=== PATIENT | female | born 2000 | race Caucasian/White ===

== ENCOUNTER → 2019-07-25 14:09 | Outpatient (CLI) | payer OTHER, SELFPAY ==
[2019-07-25 15:09] LABS: Ferritin 9 ng/mL (8-252); Free T3 2.6 pg/mL (2.18-3.98); T4 Free Direct 1.03 ng/dL (0.76-1.46); Thyroid Stim Hormone (TSH) 1.59 uIU/mL (0.358-3.74)
== END ==
PROVIDERS: Visit Provider Obstetrics & Gynecology
DX: L65.9 Nonscarring hair loss, unspecified (principal); Z12.4 Encounter for screening for malignant neoplasm of cervix; Z11.3 Encounter for screening for infections with a predominantly sexual mode of transmission
CPT/HCPCS: 82728; 84439; 84443; 84481

== ENCOUNTER → 2019-11-13 14:45 | Outpatient (CLI) | payer OTHER, SELFPAY | DX: R40.4 Transient alteration of awareness (principal) | CPT/HCPCS: 95819 ==

== ENCOUNTER 2021-09-11 13:23 | Outpatient (CLI) | payer OTHER, SELFPAY ==
[2021-09-14 04:07] LABS: Chlamydia By Nucleic Acid AMP Negative (Negative)
[2021-09-14 11:25] LABS: Gonococcus By Nucleic Acid AMP Negative (Negative)
[2021-09-16 17:18] LABS: HPV Reflexed? NOT INDICATED
== END 2021-09-11 23:59 | disposition short-term general hospital (02) ==
LOC: LABSPEC 13:30
PROVIDERS: PCP Internal Medicine; Visit Provider Obstetrics & Gynecology
DX: Z12.4 Encounter for screening for malignant neoplasm of cervix (principal); Z11.3 Encounter for screening for infections with a predominantly sexual mode of transmission
CPT/HCPCS: 87491; 87591; 88175; G0145

== ENCOUNTER 2022-05-11 17:00 | Outpatient (RCR) | payer OTHER, SELFPAY ==
--- NOTE | 2022-04-13 17:41 | HP.PTEVAL_ITS ---
Patient's Visit Information MONICA GARCIA is a 22 year old F referred to Physical Therapy by MYKE ALLEN with a diagnosis of muscle spasms. Date of Evaluation: 04/13/22 Physical Therapist: Kodak Moseley, DPT, OCS, CSCS - Visit Plan Frequency: 2-3x /Week Duration: 4-6 Weeks Plan: 2-3x/week for 3-4 weeks to start for. 1. MH and STM to B UT , lev scap and neck muscles, neck extension mobs and thoracic. 2. stretch pecs, lev scap and UT. 3. strengthen neck and scap and core and progress to HEP - Subjective Having more frequent migraines and tight in shoulder and neck. Sees Dr. Allen for migraines long haul and stress has made them worse last couple months. 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 No neck pain or arm symptoms. Does coloring at home to destress and looking down can cause MORENO. Feels tightness in neck into posterior shoulders. Does all her work with R arm. sleep s not interrupted. MORENO are 2-3 week before new meds, now maybe one time per week which is her baseline. Put on propanolol. Stress may be the lead but they come on when she is busy. They get up to 4/10 lately, they are just there. Works through it. No regular ex or neck stretches. - Pain MORENO Pain Intensity (Out of 10): 0 Pain Intensity Range: 0, 4 - Objective Walks normal and I, transfers I. Posture is max Fw head and limited mobility apparent in ext of lower cervical spine. UE AROM WFL adn without pain. reflexes bi and tri 2/3, sensation UE WNL to gross light touch. Strength UE and scap 4-/ 5 without pain. No myotomal abnormalities in UE. cervical aROM ext 60 and avoids end range due to central pain. SB full but contralateral tightness felt. rotation 80 B with just some slight pulling contralaterally. UT and lev scap mod tight B. - c/s compression. good balance and gait. - Balance/Special Test Scores Oswestry Neck Score: 5 - Goals Goal 1:: MORENO every two weeks at most Goal Time Frame: 4-6 Weeks Goal 2:: Full neck ROM ext without pain or hesitation Goal Time Frame: 4-6 Weeks Goal 3:: 2 or less on neck oswestry Goal Time Frame: 4-6 Weeks Goal 4:: Pt feel 90% better in MORENO and neck tightness./stiffness. Goal Time Frame: 4-6 Weeks - Rehabilitation Potential Physical Therapy Diagnosis: tightness in neck and postural abnormalities possibly effecting pain Rehabilitation Potential: Good - Anticipated Interventions Patient/Client Instruction: Educate patient on: Condition, Plan of Care For the Purpose of:: To decrease pain, To increase ROM, To improve muscle performance and motor function, To increase tolerance to activity/condition/position, To improve ability of physical actions for home/community/work/leisure Therapeutic Exercise to Include: Strength training, Postural training, Flexibilty training, Passive ROM, Active ROM, Jose E Exercises For the Purpose of:: To decrease pain, To increase ROM, To improve muscle performance and motor function, To increase tolerance to activity/condition/position, To improve ability of physical actions for home/community/work/leisure Manual Therapy Techniques to Include: Mobilization, Soft tissue mobilization For the Purpose of:: To decrease pain, To increase ROM Thermo therapy (hot pack): Yes For the Purpose of:: To decrease pain, To increase ROM Thank you for the opportunity to evaluate your patient. For Medicare and Medicare HMO plans, please review the plan of care and approve it. It will need to be FAXED BACK to us at [phone] for Medicare purposes. For Medicare only, by signing this I certify the plan of care. Please let me know if there are questions or concerns regarding this plan of care. Physician Signature: Date:
--- NOTE | 2022-05-11 17:23 | HP.PTREVAL ---
MYKE ALLEN, It has been my pleasure to treat MONICA GARCIA over the last 9 visits for muscle spasms. Please see the progress note below for an update on the physical therapy plan of care! Subjective: Slowly but surely getting better. Has some mid back pain from rage cleaning. Neck is tight but not as bad as originally. 60% better. Did not have MORENO last week and getting back to baseline. Doing HEP everyday stretching strengthening. They feel easy and has blue band 2x15. Sleeping is good. Activities are normal. To doctor Pollo in mid may. Objective/Function: 85 degree B cervical rotation. 80 degree extensio is +30 from IE. posture is much improved with chin back over chest. Patient feeling much better. Plan Plan: f/u 3 weeks to ensure progress maintained and then d/c, pt may cancel if doing real well. OR call to get in sooner if goes backwards. Balance/Gait/Functional tests - Balance/Special Test Scores Oswestry Neck Score: 1 Goals Goal 1:: MORENO every two weeks at most Goal Time Frame: 4-6 Weeks Goal Progress: Goal Met Goal 2:: Full neck ROM ext without pain or hesitation Goal Time Frame: 4-6 Weeks Goal Progress: Goal Met Goal 3:: 2 or less on neck oswestry Goal Time Frame: 4-6 Weeks Goal Progress: Goal Met Goal 4:: Pt feel 90% better in MORENO and neck tightness./stiffness. Goal Time Frame: 4-6 Weeks Goal Progress: 60% Anticipated Interventions Patient/Client Instruction: Educate patient on: Condition, Plan of Care For the Purpose of:: To decrease pain, To increase ROM, To improve muscle performance and motor function, To increase tolerance to activity/condition/position, To improve ability of physical actions for home/community/work/leisure Therapeutic Exercise to Include: Strength training, Postural training, Flexibilty training, Passive ROM, Active ROM, Jose E Exercises For the Purpose of:: To decrease pain, To increase ROM, To improve muscle performance and motor function, To increase tolerance to activity/condition/position, To improve ability of physical actions for home/community/work/leisure Manual Therapy Techniques to Include: Mobilization, Soft tissue mobilization For the Purpose of:: To decrease pain, To increase ROM Thermo therapy (hot pack): Yes For the Purpose of:: To decrease pain, To increase ROM Please do not hesitate to contact me at [phone] by phone or if you have questions or concerns regarding this new plan of care! Sincerely, Kodak Moseley, DPT, OCS, CSCS
--- NOTE | 2022-06-30 08:06 | HP.PTDCNRP_ITS ---
MONICA GARCIA was seen in my office for initial evaluation on 04/13/22. The following Plan of Care was established for this patient: Initial Frequency: 2-3x /Week Initial Duration: 4-6 Weeks Patient/Client Instruction: Educate patient on: Condition, Plan of Care For the Purpose of:: To decrease pain, To increase ROM, To improve muscle performance and motor function, To increase tolerance to activity/condition/position, To improve ability of physical actions for home/co mmunity/work/leisure Therapeutic Exercise to Include: Strength training, Postural training, Flexibilty training, Passive ROM, Active ROM, Jose E Exercises For the Purpose of:: To decrease pain, To increase ROM, To improve muscle performance and motor function, To increase tolerance to activity/condition/position, To improve ability of physical actions for home/community/work/leisure Manual Therapy Techniques to Include: Mobilization, Soft tissue mobilization For the Purpose of:: To decrease pain, To increase ROM Thermo therapy (hot pack): Yes For the Purpose of:: To decrease pain, To increase ROM This patient was last seen in our office 05/11/22. Pertinent comments regarding their Physical therapy will appear below: Pt seen 9 visits of POC and was 60% better. He was to f/u 3 weeks later but did not schedule or attend. at this point, it has been over 6 weeks and I will discontinue due to nonattendance. At this point I will be discontinuing this patient from physical therapy. I would be happy to see this patient again in the future if found appropriate by the physician. Thank you! Kodak Moseley, DPT, OCS, CSCS Balance/Gait/Functional tests - Balance/Special Test Scores Oswestry Neck Score: 1
== END 2022-05-11 19:00 | disposition home or self-care (01) ==
LOC: PT 17:00
PROVIDERS: PCP Internal Medicine
DX: M62.838 Other muscle spasm (principal)
CPT/HCPCS: 97110; 97140; 97161; 97530

== ENCOUNTER 2023-09-16 13:29 | Outpatient (CLI) | payer OTHER, SELFPAY ==
[2023-09-16 15:23] LABS: Free T3 2.4 pg/mL (2.18-3.98); T4 Free Direct 0.91 ng/dL (0.76-1.46); Thyroid Stim Hormone (TSH) 1.49 uIU/mL (0.358-3.74)
== END 2023-09-16 23:59 | disposition home or self-care (01) ==
LOC: LAB 13:32
PROVIDERS: PCP Internal Medicine; Referring Provider Registered Nurse; Visit Provider Registered Nurse
DX: F41.9 Anxiety disorder, unspecified (principal); Z83.49 Family history of other endocrine, nutritional and metabolic diseases
CPT/HCPCS: 36415; 84439; 84443; 84481

== ENCOUNTER → 2024-06-20 | Outpatient (CLI) | payer OTHER, SELFPAY | END | disposition home or self-care (01) | LOC: SL 19:53 | PROVIDERS: PCP Internal Medicine | DX: G47.33 Obstructive sleep apnea (adult) (pediatric) (principal) | CPT/HCPCS: 95810 ==

== ENCOUNTER → 2024-08-24 | Outpatient (CLI) | payer OTHER, SELFPAY | END | disposition home or self-care (01) | LOC: SL 13:31 | PROVIDERS: PCP Internal Medicine | DX: G47.33 Obstructive sleep apnea (adult) (pediatric) (principal) | CPT/HCPCS: 98960; G0463 ==

== ENCOUNTER → 2024-09-28 | Outpatient (CLI) | payer OTHER, SELFPAY ==
[2024-10-05 12:55] LABS: HPV Reflexed? NOT INDICATED
== END | disposition home or self-care (01) ==
LOC: LABSPEC 09:38
PROVIDERS: PCP Internal Medicine; Referring Provider Registered Nurse; Visit Provider Registered Nurse
DX: Z12.4 Encounter for screening for malignant neoplasm of cervix (principal)
CPT/HCPCS: 88175; G0145

== ENCOUNTER → 2025-01-30 | Outpatient (CLI) | payer OTHER, SELFPAY ==
--- NOTE | 2025-01-30 09:07 | RAD_ITS ---
PROCEDURE: L/S SPINE MIN 4 VIEWS 01/30/2025 REASON FOR EXAM: BACK PAIN TECHNIQUE: Four views of the lumbar spine. COMPARISON: None. FINDINGS: No evidence of acute fracture or dislocation. Vertebral body heights are maintained. Intervertebral disc spaces are maintained. No visualized pars defects. Dextroscoliotic curvature centered at L3. RAD/L/S Spine Min 4 Views IMPRESSION: Scoliotic curvature. Reading Location: [id number]
== END | disposition home or self-care (01) ==
LOC: MTRAD 09:07
PROVIDERS: PCP Internal Medicine; Referring Provider Chiropractor; Visit Provider Chiropractor
DX: M99.03 Segmental and somatic dysfunction of lumbar region (principal)
CPT/HCPCS: 72110

== ENCOUNTER → 2025-04-30 | Outpatient (CLI) | payer OTHER, SELFPAY | END | disposition home or self-care (01) | LOC: LABSPEC 16:51 | PROVIDERS: PCP Internal Medicine; Visit Provider Physician Assistant | DX: R30.0 Dysuria (principal) | CPT/HCPCS: 87077; 87086; 87088; 87186 ==

== ENCOUNTER → 2025-05-17 | Outpatient (CLI) | payer OTHER, SELFPAY ==
[2025-05-17 16:39] LABS: Mucous, Urine 0 SEEN /hpf (<or=2+)
--- OUTSIDE RECORDS SUMMARY | 2025-05-17 16:54 | XMS RPT_ITS | CCD ---
Author Organization [facility] Care Team Providers Care Aircraft Structural Fitter Name Role Phone OLIVER DUKES Attending Unavailable JESSICA CERVANTES ([facility] [place] Attending Unavaila ble MICHAEL RODRIGUEZ Referring Unavailab MICHAEL Rosenbaum Referring Unavailab MYKE Chavez Referring Unavailable MICHAEL RODRIGUEZ Primary Care Unavailable MICHAEL RODRIGUEZ Primary Care Unavailable CIPRIANO JACKSON Attending Unavailable SEAMUS VELÁZQUEZ Attending Unavailable PROVIDER, UNKNOWN Admitting Unavailable PATIENT, SELF Referring Unavailable Michael Rodriguez Primary Care Provider Dr. Divina Lock Primary Care Provider [phone] Dr. Divina Lock Attending Provider [phone] Dr. Divina Lock Referring Provider [phone] Dr. Divina Lock Primary Care Provider [phone] Dr. Divina Lock Referring Provider [phone] PAVAN Guido Attending Provider Divina Lock MD Primary Care Provider [phone] Dr. Divina Lock MD Primary Care Provider Ashvin HENDERSON, Dr. Murcia Referring Provider [phone] Denise REINA, Dr. Quispe Attending Provider [phone] Denise REINA, Dr. Quispe Referring Provider [phone] MYKE ABAD Attending Unavailable MYKE ABAD Attending Unavailable MYKE ABAD Attending Unavailable Aaron Saez Attending Provider Aaron Saez Attending Unavailable Oleghe, Efewongbe Primary Care Unavailable Oleghe, Efewongbe Referring Unavailable Oleghe, Efewongbe Primary Care Unavailable DosBrittaney lynne Attending Unavailable Oleghe, Efewongbe Referring Unavailable Oleghe, Efewongbe Primary Care Unavailable DosBrittaney lynne Attending Unavailable Oleghe, Efewongbe Referring Unavailable Oleghe, Efewongbe Primary Care Unavailable DosBrittaney lynne Attending Unavailable Oleghe, Efewongbe Referring Unavailable Oleghe, Efewongbe Primary Care Unavailable Assessment, Health Risk Attending Unavaila ble Assessment, Health Risk Referring Unavaila ble Aaron Saez Attending Unavailable Oleghe, Efewongbe Primary Care Unavailable Oleghe, Efewongbe Primary Care Unavailable DosBrittaney lynne Attending Unavailable DosBrittaney lynne Referring Unavailable Oleghe, Efewongbe Primary Care Unavailable Anila Guido Attending Unavailable Anila Guido Referring Unavailable OLAMIDECRENATALIE GARIBAY Attending Unavailable RICHCREEK NATALIE Referring Unavailable Oleghe, Efewongbe Primary Care Unavailable OLAMIDECRENATALIE GARIBAY Attending Unavailable Oleghe, Efewongbe Primary Care Unavailable Oleghe, Efewongbe Primary Care Unavailable DosBrittaney lynne Attending Unavailable Oleghe, Efewongbe Referring Unavailable Oleghe, Efewongbe Primary Care Unavailable Anila Guido Attending Unavailable Oleghe, Efewongbe Referring Unavailable Oleghe, Efewongbe Primary Care Unavailable Oleghe, Efewongbe Attending Unavailable Oleghe, Efewongbe Referring Unavailable Oleghe, Efewongbe Primary Care Unavailable DosBrittaney lynne Attending Unavailable Oleghe, Efewongbe Referring Unavailable Allergies Allergy Classification Reported Allergen(s) Allergy Type Date of Onset Reaction(s) Facility (20 sources) Azithromycin; Translations: [AZITHROMYCIN] Drug Allergy 10-07-2009 Enrique Aguayo [facility] [place] Other [place] Repository Medications Current Medications Medication Drug Class(es) Dates Sig (Normalized) Sig (Original) Ascorbic Acid / Zinc Sulfate (6 sources) Vitamin C Start: 03-26-2020 Ascorbic Acid-Zinc Sulfate 200-100 mg tablet Active 1 {tbl} PO DAILY March 26, 2020 12:00am 1000 mg Norgestimate-Ethiny l Estradiol (20 sources) Progestin, Estrogen Start: 09-28-2024 Norgestimate-Ethin yl Estradiol (Sprintec (28)) 0.25-35 mg-mcg tablet Active 1 {tbl} PO DAILY 18 08September 28, 2024 9:32am Start: 09-28-2024 Norgestimate-E thinyl Estradiol (Sprintec (28)) 0.25-35 mg-mcg tablet Active 1 {tbl} PO DAILY September 28, 2024 9:32am Start: 08-27-2024 End: 09-28-2024 Norgestimate-Ethinyl Estradi ol (Sprintec (28)) 0.25-35 mg-mcg tablet Discontinued 1 {tbl} PO DAILY 19 10August 27, 2024 3:30pm September 28, 2024 9:34am Start: 08-27-2024 End: 09-28-2024 Norgestimate-Ethinyl Estradi ol (Sprintec (28)) 0.25-35 mg-mcg tablet Discontinued 1 {tbl} PO DAILY August 27, 2024 3:30pm September 28, 2024 9:34am Start: 08-31-2023 End: 08-27-2024 Norgestimate-Ethinyl Estradi ol (Sprintec (28)) 0.25-35 mg-mcg tablet Discontinued 1 {tbl} PO DAILY 18 08August 31, 2023 8:56am August 27, 2024 3:30pm Start: 08-31-2023 End: 08-27-2024 Norgestimate-Ethinyl Estradi ol (Sprintec (28)) 0.25-35 mg-mcg tablet Discontinued 1 {tbl} PO DAILY August 31, 2023 8:56am August 27, 2024 3:30pm Start: 08-31-2023 take 1 tablet by martha once daily Norgestimate-Ethinyl Estradiol (Sprintec (28)) 0.25-35 mg-mcg tablet Active 1 TABLET PO DAILY August 31, 2023 7:56am Start: 09-13-2022 End: 08-31-2023 Norgestimate-Ethinyl Estradi ol (Sprintec (28)) 0.25-35 mg-mcg tablet Discontinued 1 {tbl} PO DAILY 18 08September 13, 2022 9:50am August 31, 2023 8:56am Start: 09-13-2022 End: 08-31-2023 Norgestimate-Ethinyl Estradi ol (Sprintec (28)) 0.25-35 mg-mcg tablet Discontinued 1 {tbl} PO DAILY September 13, 2022 9:50am August 31, 2023 8:56am Start: 09-13-2022 End: 08-31-2023 take 1 tablet by mouth once daily Norgestimate-Ethinyl Estradiol (Sprintec (28)) 0.25-35 mg-mcg tablet Discontinued 1 TABLET PO DAILY September 13, 2022 8:50am August 31, 2023 7:56am Start: 09-01-2022 End: 09-13-2022 Norgestimate-Ethinyl Estradi ol (Sprintec (28)) 0.25-35 mg-mcg tablet Discontinued 1 {tbl} PO DAILY September 01, 2022 4:50pm September 13, 2022 9:51am Start: 09-01-2022 End: 09-13-2022 Norgestimate-Ethinyl Estradi ol (Sprintec (28)) 0.25-35 mg-mcg tablet Discontinued 1 {tbl} PO DAILY September 01, 2022 4:50pm September 13, 2022 9:51am Start: 09-01-2022 End: 09-13-2022 take 1 tablet by mouth once daily Norgestimate-Ethinyl Estradiol (Sprintec (28)) 0.25-35 mg-mcg tablet Discontinued 1 TABLET PO DAILY September 01, 2022 3:50pm September 13, 2022 8:51am Start: 03-26-2020 End: 09-01-2022 Norgestimate-Ethinyl Estradi ol (Sprintec (28)) 0.25-35 mg-mcg tablet Discontinued 1 {tbl} PO DAILY March 26, 2020 12:00am September 01, 2022 4:50pm Start: 03-26-2020 End: 09-01-2022 take 1 tablet by mouth once daily Norgestimate-Ethinyl Estradiol (Sprintec (28)) 0.25-35 mg-mcg tablet Discontinued 1 TABLET PO DAILY March 25, 2020 11:00pm September 01, 2022 3:50pm Start: 03-26-2020 take 1 tablet by martha th once daily Norgestimate-Ethinyl Estradiol (Sprintec (28)) 0.25-35 mg-mcg tablet Active 1 TABLET PO DAILY March 25, 2020 11:00pm take 1 tablet by martha th once daily Sprintec 28 0.25-35 MG-MCG tablet TAKE 1 TABLET BY MOUTH DAILY Oral for 28 Active ferrous sulfate 325 mg oral tablet (8 sources) Start: 03-26-2020 take 1 tablet by mouth once daily Ferrous Sulfate (Feosol) 325 mg (65 mg iron) tablet Active 325 mg PO DAILY March 26, 2020 12:00am 1.5 ml fremanezumab-vfrm 150 mg/ml auto-injector (11 sources) Start: 04-30-2025 Fremanezumab-V frm (Ajovy Autoinjector) 225 mg/1.5 mL auto-injector Active 225 mg SC EVERY MONTH April 30, 2025 12:00am Start: 08-13-2024 End: 08-13-2025 fremanezumab (Ajovy) 225 MG/ 1.5ML auto-injector Indications: Migraine without aura, intractable, with status migrainosus Inject 1 pen (225 mg) under the skin every 30 (thirty) days 1 each 5 02/14/2025 08/13/2025 Active hydrOXYzine hydrochloride 25 mg oral tablet (20 sources) Antihistamine Start: 05-02-2024 take 1 tablet by mouth at bedtime hydrOXYzine HCl (Atarax) 25 MG tablet Take 25 mg by mouth at bedtime 05/02/2024 Active levocetirizine dihydrochloride 5 mg oral tablet (8 sources) Histamine-1 Receptor Antagonist Start: 03-26-2020 take 1 tablet by mouth once daily Levocetirizine (Xyzal) 5 mg tablet Active 5 mg PO DAILY March 26, 2020 12:00am Magnesium (20 sources) Start: 03-26-2020 take 2 tablets by mouth once daily Magnesium 250 mg tablet Active 500 mg PO DAILY March 26, 2020 12:00am Start: 03-26-2020 take 500 mg by mouth once rome y Magnesium Active 500 MG PO DAILY March 25, 2020 11:00pm magnesium 500 MG tablet 1 (one) time each day at the same time. Active mometasone furoate 0.05 mg/actuat metered dose nasal spray (1 source) Corticosteroid Start: 10-07-2009 mometasone (NASONEX) 50 MCG/ACT nasal spray by Nasal route 0 10/07/2009 Active nitrofurantoin, macrocrystals 25 mg / nitrofurantoin, monohydrate 75 mg oral capsule (1 source) Nitrofuran Antibacterial Start: 04-30-2025 take 1 capsule by mouth every twelve hours at mealtime Nitrofurantoin Monohyd/M-Cryst (Macrobid) 100 mg capsule Active 100 mg PO Q12H 10 5 0 April 30, 2025 12:00am May 04, 2025 12:00am must administer with a meal/food oxymetazoline hydrochloride 0.5 mg/ml nasal spray (8 sources) Start: 03-26-2020 Oxymetazoline (12 Hour Nasal Relief [place]) 0.05 % spray,non-aerosol Active 2 NMA INTRANASAL Q12H as needed March 26, 2020 12:00am rizatriptan 10 mg oral tablet (14 sources) Serotonin-1b and Serotonin-1d Receptor Agonist Start: 06-13-2024 rizatriptan (Maxalt) 10 MG tablet Indications: Migraine without aura, intractable, with status migrainosus 1 tab prn migraine. May repeat once in 2 hrs. Max 2/MORENO 4/wk 9 tablet 3 06/13/2024 Active tiZANidine 4 mg oral tablet (20 sources) Central alpha-2 Adrenergic Agonist Start: 11-15-2024 End: 11-15-2024 tiZANidine (Zanaflex) 4 MG tablet Indications: Cervical paraspinal muscle spasm 1 tab QHS 90 tablet 3 11/15/2024 Active Start: 05-05-2022 End: 02-14-2023 take 1 capsule by mouth at bedtime Tizanidine 2 mg capsule Discontinued 2 mg PO AT BEDTIME May 05, 2022 12:00am February 14, 2023 11:06am topiramate 50 mg oral tablet (5 sources) Start: 04-23-2025 topiramate 50 MG tablet Indications: Migraine without aura, intractable, with status migrainosus 1 tab BID 60 tablet 5 04/23/2025 Active Start: 02-14-2025 topiramate (To pamax) 25 MG tablet Indications: Migraine without aura, intractable, with status migrainosus 1 tab AM x 3-5 days, 1 tab BID x 3-5 days, 1 tab AM 2 tabs PM x 3-5 days then 2 tabs BID 120 tablet 5 02/14/2025 Active 24 hr venlafaxine 75 mg extended release oral capsule (20 sources) Serotonin and Norepinephrine Reuptake Inhibitor Start: 05-05-2023 venlafaxine XR (Effexor XR) 75 MG 24 hr capsule Indications: Migraine without aura, not intractable, with status migrainosus 3 caps daily 90 capsule 5 03/06/2025 Active Start: 05-05-2023 take 225 mg by mouth once rome y Venlafaxine Active 225 MG PO DAILY May 04, 2023 11:00pm Start: 03-26-2020 End: 02-14-2023 take 1 capsule by mouth once daily Venlafaxine (Effexor Xr) 150 mg capsule,extended release 24hr Discontinued 225 mg PO DAILY March 26, 2020 12:00am February 14, 2023 11:05am venlafaxine (EFF EXOR) 75 MG tablet Take 75 mg by mouth 0 Active zinc sulfate-vitamin C 200 mg-100 mg tablet (2 sources) Start: 03-26-2020 take 1 tablet by mouth once daily zinc sulfate-vitamin C 200 mg-100 mg tablet Active 1 TABLET PO DAILY March 25, 2020 11:00pm 1000 mg Completed/Discontinued Medications Medication Drug Class(es) Dates Sig (Normalized) Sig (Original) bacitracin 0.5 unt/mg topical ointment (1 source) Start: 07-18-2019 End: 07-18-2019 bacitracin zinc ointment doxycycline monohydrate 100 mg oral capsule (7 sources) Tetracycline-cla ss Drug Start: 02-14-2023 End: 05-05-2023 take 1 capsule by mouth twice daily Doxycycline Monohydrate 100 mg capsule Discontinued 100 mg PO TWICE A DAY 20 0 February 14, 2023 12:00am May 05, 2023 4:11pm melatonin 3 mg oral capsule (20 sources) Start: 03-11-2021 End: 02-14-2023 take 1 capsule by mouth at bedtime as needed Melatonin 3 mg capsule Discontinued 3 mg PO BEDTIME as needed March 11, 2021 12:00am February 14, 2023 11:06am melatonin 3 MG t ablet 1 (one) time each day at the same time. Active propranolol hydrochloride 20 mg oral tablet (20 sources) beta-Adrenergic Luz Maria Start: 05-05-2023 End: 11-20-2024 take 1 tablet by mouth twice daily Propranolol 20 mg tablet Discontinued 20 mg PO TWICE A DAY 180 November 15, 2023 9:01am May 02, 2024 6:20pm Migraines Start: 03-22-2022 End: 02-14-2023 take 1 tablet by mouth twice daily Propranolol 20 mg tablet Discontinued 20 mg PO TWICE A DAY 180 November 18, 2022 9:27am February 14, 2023 11:07am propranolol (Ind eral) 20 MG tablet every 12 (twelve) hours. Active triamcinolone acetonide 1 mg/ml topical cream (7 sources) Corticosteroid Start: 11-03-2022 End: 02-14-2023 Triamcinolone Acetonide 0.1 % cream Discontinued 1 NMA TOPICAL DAILY 453.6 November 03, 2022 12:00am February 14, 2023 11:07am Problems Active Problems Problem Classification Problem Date Documented Da te Episodic/Chronic Allergic reactions (7 sources) Inflammatory dermatosis; Translations: [Dermatitis, unspecified] 11-03-2022 Episodic Anxiety disorders (20 sources) Anxiety; Translations: [Anxiety disorder, unspecified] Onset: 07-24-2024 Chronic Cardiac dysrhythmias (10 sources) Tachycardia; Translations: [Tachycardia, unspecified] Episodic Digestive congenital anomalies (14 sources) Enlargement of tongue; Translations: [Macroglossia] Onset: 06-05-2023 06-05-2023 Chronic Genitourinary symptoms and ill-defined conditions (1 source) Dysuria; Translations: [Dysuria] Onset: 05-16-2025 Episodic Headache; including migraine (20 sources) Refractory migraine without aura; Translations: [Migraine without aura, intractable, with status migrainosus] Onset: 06-05-2023 06-13-2024 Chronic Miscellaneous mental health disorders (14 sources) Hypnic jerk; Translations: [Other sleep disorders not due to a substance or known physiological condition] Onset: 06-05-2023 06-05-2023 Chronic Other acquired deformities (17 sources) Scoliosis of lumbar spine; Translations: [Scoliosis, unspecified] 02-04-2025 Chronic Other bone disease and musculoskeletal deformities (1 source) Other idiopathic scoliosis, lumbar region; Translations: [Other idiopathic scoliosis, lumbar region] Onset: 05-09-2025 Chronic Other bone disease and musculoskeletal deformities (20 sources) Segmental and somatic dysfunction; Translations: [Segmental and somatic dysfunction of cervical region] 03-27-2020 Episodic Other bone disease and musculoskeletal deformities (1 source) Segmental and somatic dysfunction of cervical region; Translations: [Segmental and somatic dysfunction of cervical region] Onset: 05-09-2025 Episodic Other bone disease and musculoskeletal deformities (1 source) Segmental and somatic dysfunction of lumbar region; Translations: [Segmental and somatic dysfunction of lumbar region] Onset: 05-09-2025 Episodic Other bone disease and musculoskeletal deformities (1 source) Segmental and somatic dysfunction of thoracic region; Translations: [Segmental and somatic dysfunction of thoracic region] Onset: 05-09-2025 Episodic Other connective tissue disease (20 sources) Spasm of cervical paraspinous muscle; Translations: [Other muscle spasm] Onset: 06-05-2023 06-13-2024 Episodic Residual codes; unclassified (20 sources) Obstructive sleep apnea syndrome; Translations: [Obstructive sleep apnea (adult) (pediatric)] Onset: 06-05-2023 06-13-2024 Chronic Residual codes; unclassified (15 sources) Hypersomnia; Translations: [Hypersomnia, unspecified] Onset: 06-13-2024 06-13-2024 Chronic Residual codes; unclassified (1 source) Obstructive sleep apnea (adult) (pediatric); Translations: [Obstructive sleep apnea (adult) (pediatric)] Onset: 09-19-2024 Chronic Residual codes; unclassified (1 source) Family history of malignant neoplasm of breast; Translations: [Family history of malignant neoplasm of breast] Onset: 11-20-2018 Episodic Residual codes; unclassified (7 sources) FH: Hypothyroidism; Translations: [Family history of other endocrine, nutritional and metabolic diseases] 09-16-2023 Episodic Residual codes; unclassified (9 sources) Inadequate sleep hygiene; Translations: [Inadequate sleep hygiene] Onset: 06-13-2024 02-14-2025 Episodic Skin and subcutaneous tissue infections (7 sources) Cellulitis of upper arm; Translations: [Cellulitis of right upper limb] 02-14-2023 Episodic Spondylosis; intervertebral disc disorders; other back problems (8 sources) Neck pain; Translations: [Cervicalgia] 03-27-2020 Episodic Unclassified (4 sources) Transformed migraine; Translations: [Chronic migraine] Past or Other Problems Problem Classification Problem Date Documented Da te Episodic/Chronic Open wounds of extremities (1 source) Laceration of thumb; Translations: [Laceration of left thumb without foreign body without damage to nail, initial encounter] Episodic Other screening for suspected conditions (not mental disorders or infectious disease) (1 source) Encounter for screening for malignant neoplasm of cervix; Translations: [Encounter for screening for malignant neoplasm of cervix] Onset: 10-12-2024 Episodic Other skin disorders (1 source) Acne vulgaris; Translations: [Acne vulgaris] Onset: 12-07-2017 Episodic Other upper respiratory disease (14 sources) Pharyngeal stenosis; Translations: [Other diseases of pharynx] Onset: 06-05-2023 06-05-2023 Episodic Other upper respiratory disease (14 sources) Deviated nasal septum; Translations: [Deviated nasal septum] Onset: 06-05-2023 06-05-2023 Episodic Unclassified (8 sources) history of ulcer 03-22-2022 Results Test Name Value Interpretation Reference Range Facility Internal Medicine Office Vis gerson 05-16-2025 Internal Medicine Office Visit [facility] Internal Medicine [facility] [place] [address] OFFICE VISIT Date of Service: 05/16/25 MR#: [id number] Acct: [id number] Name: TAMI GARCIA Rep #: [id number] : 2000 Provider: Dr. 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 Required: No Accompanied by: Self Is patient in pain?: No Allergies azithromycin (From Zithromax) Allergy (Mild, Verified 05/16/25 13:38) Rash Medications ???Medication ???Instructions ???Recorded ???Confirmed ???Type ascorbic acid 100 mg-zinc sulfate 1 tab PO DAILY 03/26/20 05/16/25 History 200 mg tablet ferrous sulfate 325 mg (65 mg 325 mg PO DAILY 03/26/20 05/16/25 History iron) tablet (Feosol) levocetirizine 5 mg tablet (Xyzal) 5 mg PO DAILY 03/26/20 05/16/25 History magnesium 250 mg tablet 500 mg PO DAILY 03/26/20 05/16/25 History oxymetazoline 0.05 % nasal spray 2 spray intranasal Q12H PRN 05/16/25 History (12 Hour Nasal Relief [place]) venlafaxine 75 mg capsule,extended 225 mg PO DAILY Migraines/Anxiet y 05/05/23 05/16/25 History release 24 hr hydroxyzine HCl 25 mg tablet 25 mg PO TID PRN anxiety #90 tabs 05/02/24 05/16/25 Rx norgestimate 0.25 mg-ethinyl 1 tab PO DAILY #28 tabs 09/28/24 0 05/16/25 Rx estradiol 0.035 mg tablet (Sprintec (28)) fremanezumab-vfrm 225 mg/1.5 mL 225 mg subcut QMONTH 04/30/2504/23 History subcutaneous auto-injector (Ajovy) propranolol 20 mg tablet 20 mg PO DAILY Migraines #90 tabs 05/16/25 05/16/25 Rx Nurse's Note: yearly and has paper work for [facility] to be filled out [facility] Medical History (Updated 05/16/25 @ 14:[address] Divina Lock MD) Anxiety and depression Dysuria Preventative health care Cellulitis of right upper arm Dermatitis Health care maintenance Tachycardia Encounter for preventative adult health care examination Anxiety Chronic migraine history of ulcer Headache, migraine Seasonal allergies Surgical History History of tonsillectomy Family History Mother Anxiety Arthritis Hypertension Thyroid disorder Grandmother Arthritis Hypertension High cholesterol Thyroid disorder Breast cancer Maternal Cancer uterine Maternal Grandfather Hypertension Melanoma Dementia Uncle Hypertension Skin cancer Diabetes Father Osteoporosis seizures/epilepsy Social History adopted: No household members: none housing: house number of children: 0 current occupational status: employed current occupation: [email or web address] current occupational exposures/hazards: No pets and animals: Yes (2) pets and animals: cat(s) history of recent travel: No sexually active: No Smoking Status: Never smoker second hand exposure: No alcohol intake: current alcohol intake frequency: holidays/special occasions only Alcohol type: hard liquor substance use type: does not use caffeine: Yes (3) Type: coffee and tea what type of physical activity do you participate in: weight training and other frequency: 3-4 times per week seatbelt use: always do you feel safe at home: Yes HPI HPI Chief Complaint: yearly Details: TAMI GARCIA, is a 25-year-old female presenting for her yearly visit. Also has some concerns. History of anxiety/depression she reports an initial improvement with her previous therapist, which was followed by a lack of rapport, leading her to discontinue therapy. She plans to resume therapy with a new counselor in May. The patient experiences periodic worsening of mood due to seasonal changes. She is currently on venlafaxine which was originally prescribed for chronic migraine. Also on hydroxyzine as needed. Chronic history of migraine, follows up with neurology and recently started on Ajovy. The patient's discussion reveals a desire to wean off Venlafaxine since she was recently started on Ajovy. Migraines have been stable on Ajovy. Also on propranolol, 20 mg twice daily. She reports a history of a urinary tract infection (UTI) approximately two weeks prior, initially treated at an urgent care clinic. However, she suspects incomplete resolution as she experiences (more content not included)... Normal [facility] CBC, [employer] 05-14-2025 Absolute Lymph 2.27 X10 3/uL Normal 0.83-4.51 [facility] Comment on above: Performed By: #### L 500.2900, L400.0100, L100.0200 #### [facility] [address] [place], [address] Absolute Neut 2.6 X10 3/uL Normal 2.0-7.7 [facility] Comment on above: Performed By: #### L 500.2900, L400.0100, L100.0200 #### [facility] [address] [place], [address] Basophils/100 WBC (Bld) 0.9 % Normal 0-1 [facility] Comment on above: Performed By: #### L 500.2900, L400.0100, L100.0200 #### [facility] [address] [place], [address] Eosinophils/100 WBC (Bld) 0.0 % Normal 0-5 [facility] Comment on above: Performed By: #### L 500.2900, L400.0100, L100.0200 #### [facility] [address] [place], [address] Erythrocyte distribution width (RBC) [Ratio] 11.9 % Normal 11.6-14.6 [facility] Comment on above: Performed By: #### L 500.2900, L400.0100, L100.0200 #### [facility] [address] [place], [address] Hematocrit (Bld) [Volume fraction] 39.1 % Normal 37-47 [facility] Comment on above: Performed By: #### L 500.2900, L400.0100, L100.0200 #### [facility] [address] [place], [address] Hemoglobin (Bld) [Mass/Vol] 13.2 g/dL Normal 12.0-15.0 [facility] Comment on above: Performed By: #### L 500.2900, L400.0100, L100.0200 #### [facility] [address] [place], [address] Lymphocytes/100 WBC (Bld) 43.1 % High 19-41 [facility] Comment on above: Performed By: #### L 500.2900, L400.0100, L100.0200 #### [facility] [address] [place], [address] MCH (RBC) [Entitic mass] 29.2 pg Normal 27.0-32.0 [facility] Comment on above: Performed By: #### L 500.2900, L400.0100, L100.0200 #### [facility] [address] [place], [address] MCHC (RBC) [Mass/Vol] 33.8 g/dL Normal 32-36 [facility] Comment on above: Performed By: #### L 500.2900, L400.0100, L100.0200 #### [facility] [address] [place], [address] MCV (RBC) [Entitic vol] 86.5 fL Normal 81-99 [facility] Comment on above: Performed By: #### L 500.2900, L400.0100, L100.0200 #### [facility] [address] [place], [address] Monocytes/100 WBC (Bld) 7.0 % Normal 0-10 [facility] Comment on above: Performed By: #### L 500.2900, L400.0100, L100.0200 #### [facility] [address] [place], [address] Neutrophils/100 WBC (Bld) 48.4 % Normal 47-70 [facility] Comment on above: Performed By: #### L 500.2900, L400.0100, L100.0200 #### [facility] [address] [place], [address] NRBC # 0.00 10 3/uL Normal 0-5 [facility] Comment on above: Performed By: #### L 500.2900, L400.0100, L100.0200 #### [facility] [address] [place], [address] Nucleated RBC (Bld) [#/Vol] 0 10*3/uL Normal 0-5 [facility] Comment on above: Performed By: #### L 500.2900, L400.0100, L100.0200 #### [facility] [address] [place], [address] Platelet mean volume (Bld) [Entitic vol] 8.9 fL Normal 6.2-12.0 [facility] Comment on above: Performed By: #### L 500.2900, L400.0100, L100.0200 #### [facility] [address] [place], [address] Platelets (Bld) [#/Vol] 260 10*3/uL Normal 150-450 [facility] Comment on above: Performed By: #### L 500.2900, L400.0100, L100.0200 #### [facility] [address] [place], [address] RBC (Bld) [#/Vol] 4.52 10*6/uL Normal 4.2-5.4 [facility] Comment on above: Performed By: #### L 500.2900, L400.0100, L100.0200 #### [facility] [address] [place], [address] RDW SD 38.0 fl Normal 35.1-43.9 [facility] Comment on above: Performed By: #### L 500.2900, L400.0100, L100.0200 #### [facility] [address] [place], [address] WBC (Bld) [#/Vol] 5.3 10*3/uL Normal 4.4-11.0 [facility] Comment on above: Performed By: #### L 500.2900, L400.0100, L100.0200 #### [facility] [address] [place], [address] Employee Profileon LDH 146 U/L Normal 84-246 [facility] Comment on above: Performed By: #### L 500.2900, L400.0100, L100.0200 #### [facility] [address] [place], [address] Phosphate [Mass/Vol] 3.7 mg/dL Normal 2.7-4.5 [facility] Comment on above: Performed By: #### L 500.2900, L400.0100, L100.0200 #### [facility] [address] [place], [address] URIC 6.2 mg/dL High 2.6-6.0 [facility] Comment on above: Result Comment: The drugs N-Acetylcysteine and Metamizole may falsely depress this assay. Performed By: #### L 500.2900, L400.0100, L100.0200 #### [facility] [address] [place], [address] Urinalysis, Employeeon 05-14 BILIRUBIN URINE Negative Normal Negative [facility] Comment on above: Order Comment: Urine , Random Performed By: #### L 500.2900, L400.0100, L100.0200 #### [facility] [address] [place], [address] Clarity (U) Clear Normal Clear [facility] Comment on above: Order Comment: Urine , Random Performed By: #### L 500.2900, L400.0100, L100.0200 #### [facility] [address] [place], [address] Color (U) Yellow Normal Yellow [facility] Comment on above: Order Comment: Urine , Random Performed By: #### L 500.2900, L400.0100, L100.0200 #### [facility] [address] [place], [address] GLUCOSE, UR Normal Normal Normal [facility] Comment on above: Order Comment: Urine , Random Performed By: #### L 500.2900, L400.0100, L100.0200 #### [facility] [address] [place], [address] KETONE UR Negative Normal Negative [facility] Comment on above: Order Comment: Urine , Random Performed By: #### L 500.2900, L400.0100, L100.0200 #### [facility] [address] [place], [address] LEUK ESTERASE 500 /ul Abnormal Negative [facility] Comment on above: Order Comment: Urine , Random Performed By: #### L 500.2900, L400.0100, L100.0200 #### [facility] [address] [place], [address] Nitrite Ql (U) Negative Normal Negative [facility] Comment on above: Order Comment: Urine , Random Performed By: #### L 500.2900, L400.0100, L100.0200 #### [facility] [address] [place], [address] OCCULT BLOOD-UR Negative Normal Negative [facility] Comment on above: Order Comment: Urine , Random Performed By: #### L 500.2900, L400.0100, L100.0200 #### [facility] [address] [place], [address] pH UR 6.0 Normal 5.0 - 8.0 [facility] Comment on above: Order Comment: Urine , Random Performed By: #### L 500.2900, L400.0100, L100.0200 #### [facility] [address] [place], [address] PROT DIPSTX 30 mg/dl Abnormal Negative [facility] Comment on above: Order Comment: Urine , Random Performed By: #### L 500.2900, L400.0100, L100.0200 #### [facility] [address] [place], [address] SP.GR. DIPSTX 1.025 Normal 1.002-1.030 [facility] Comment on above: Order Comment: Urine , Random Performed By: #### L 500.2900, L400.0100, L100.0200 #### [facility] [address] [place], [address] UROBILI Normal Normal Normal [facility] Comment on above: Order Comment: Urine , Random Performed By: #### L 500.2900, L400.0100, L100.0200 #### [facility] [address] [place], [address] Chiropractic Reporton 2024 Chiropractic Report [facility] [address] [place] [address] OFFICE VISIT Date of Service: 05/09/25 MR#: [id number] Acct: [id number] Name: RADHATAMI ABHISHEK Rep #: [id number] : 2000 Provider: NUNO Boateng Age/Sex: 25/F Location: [facility] Status: Signed Intake Vital Signs 01/30/25 09:04 04/30/25 16:25 Height 5 ft 5 in 5 ft 5 in Intake Visit Reasons: BACK PAIN Chief Complaint: neck discomfort Allergies azithromycin (From Zithromax) Allergy (Mild, Verified 05/09/25 16:09) Rash Medications ???Medication ???Instructions ???Recorded ???Confirmed ???Type ascorbic acid 100 mg-zinc sulfate 1 tab PO DAILY 03/26/20 05/09/25 History 200 mg tablet ferrous sulfate 325 mg (65 mg 325 mg PO DAILY 03/26/20 05/09/25 History iron) tablet (Feosol) levocetirizine 5 mg tablet (Xyzal) 5 mg PO DAILY 03/26/20 05/09/25 History magnesium 250 mg tablet 500 mg PO DAILY 03/26/20 05/09/25 History oxymetazoline 0.05 % nasal spray 2 spray intranasal Q12H PRN 05/09/25 History (12 Hour Nasal Relief [place]) venlafaxine 75 mg capsule,extended 225 mg PO DAILY Migraines/Anxiet y 05/05/23 05/09/25 History release 24 hr hydroxyzine HCl 25 mg tablet 25 mg PO TID PRN anxiety #90 tabs 05/02/24 05/09/25 Rx norgestimate 0.25 mg-ethinyl 1 tab PO DAILY #28 tabs 09/28/24 0 05/09/25 Rx estradiol 0.035 mg tablet (Sprintec (28)) propranolol 20 mg tablet 20 mg PO BID Migraines #180 tabs 0 11/20/24 05/09/25 Rx fremanezumab-vfrm 225 mg/1.5 mL 225 mg subcut QMONTH 04/30/2504/22 History subcutaneous auto-injector (Ajovy) [facility] Medical History Preventative health care Cellulitis of right upper arm Dermatitis Health care maintenance Tachycardia Encounter for preventative adult health care examination Anxiety Chronic migraine history of ulcer Headache, migraine Seasonal allergies Surgical History History of tonsillectomy Family History Mother Anxiety Arthritis Hypertension Thyroid disorder Grandmother Arthritis Hypertension High cholesterol Thyroid disorder Breast cancer Maternal Cancer uterine Maternal Grandfather Hypertension Melanoma Dementia Uncle Hypertension Skin cancer Diabetes Father Osteoporosis seizures/epilepsy Social History adopted: No household members: none housing: house number of children: 0 current occupational status: employed current occupation: [email or web address] current occupational exposures/hazards: No pets and animals: Yes (2) pets and animals: cat(s) history of recent travel: No sexually active: No Smoking Status: Never smoker second hand exposure: No alcohol intake: current alcohol intake frequency: holidays/special occasions only Alcohol type: hard liquor substance use type: does not use caffeine: Yes (3) Type: coffee and tea what type of physical activity do you participate in: weight training and other frequency: 3-4 times per week seatbelt use: always do you feel safe at home: Yes HPI BACK PAIN Chief Complaint: neck pain Visit Number: 5 Details: Tami is a 25 y/o female here to follow up on neck and back pain. Pt. states her last adjustment was helpful to relieve her pain and discomfort. She reports having bilateral hand numbness and tingling at times. She notices it when she is crocheting and when she drives at times. She does not notice the hand numbness at work with her mouse/ computer. She has had MORENO's for the last 2 days but they are sinus r/t allergies. She states her low back has been feeling good. She denies new injury or radiculopathy. She states chiropractic adjustments are helpful in relieving her pain and discomfort. Onset: 01/18/25 Location: low back/neck Duration: intermittent Aggravating or associated factors: bending, leaning, work posture Relieving factors: chiro,massage Pain Quality: aching and dull Exam Musc General: Yes normal gait, joint tenderness and decreased range of motion; No normal posture or muscle weakness Cervical Spine: Yes normal cervical lordosis, Yes cervical muscular tenderness bilateral lower , Yes cervical spasm right greater than left diffuse trapezius and paracervical muscles and Yes misalignment misalignment: C6 and C7 Thoracic/Lumber: No thoracic and lumbar spine normal to inspection, Yes paraspinal tenderness bilaterally in the upper thoracic, in the mid lumbar and in the lower lumbar, Yes scoliosis (right lumbar L3), Yes thoraco-lumbar spasm bilaterally (trap) in the upper thoracic and in the mid thoracic and on the right greater than left (lumbar paraspin (more content not included)... Normal [place] [facility] Urine Cultureon 05-02-2025 [facility] Staphylococcus saprophyticus [place] Count 80,000-100,000 Staphylococcus saprophyticus: REACTION cefOXitin Susc Islt Doxycycline Islt WAN <=0.5 S Clindamycin.induced Susc Islt NEG Gentamicin Islt WAN <=0.5 S Linezolid Islt WAN 2 S Nitrofurantoin Islt WAN <=16 S Oxacillin Susc Islt S Tetracycline Islt WAN <=1 S TMP SMX Islt WAN <=10 S Vancomycin Islt WAN 1 S Normal [facility] Comment on above: Performed By: #### M 100.2200 #### [facility] [address] [place], [place], [address] Urgent Care Visit Reporton 0 04-30-2025 Urgent Care Visit Report [facility] [address], [address] [place], [place] [address] OFFICE VISIT Date of Service: 04/30/25 MR#: [id number] Acct: [id number] Name: TAMI GARCIA Rep #: [id number] : 2000 Provider: LANNY Olson Age/Sex: 25/F Location: [facility] Status: Signed Intake Vital Signs 01/30/25 09:04 04/30/25 16:25 Height 5 ft 5 in 5 ft 5 in Weight: 191 lb BMI 31.8 BP 132/82 H Blood Pressure Location Lt brachial Position Sitting Pulse 100 Pulse Source Monitor Temp 98.8 F Temp Source Oral Pulse Oximetry (%) 99 Oxygen Delivery Method room air Intake Visit Reasons: CONCERN FOR UTI Chief Complaint: UTI Accompanied by: Self Allergies azithromycin (From Zithromax) Allergy (Mild, Verified 04/30/25 16:21) Rash Medications ???Medication ???Instructions ???Recorded ???Confirmed ???Type ascorbic acid 100 mg-zinc sulfate 1 tab PO DAILY 03/26/20 04/30/25 History 200 mg tablet ferrous sulfate 325 mg (65 mg 325 mg PO DAILY 03/26/20 04/30/25 History iron) tablet (Feosol) levocetirizine 5 mg tablet (Xyzal) 5 mg PO DAILY 03/26/20 04/30/25 History magnesium 250 mg tablet 500 mg PO DAILY 03/26/20 04/30/25 History oxymetazoline 0.05 % nasal spray 2 spray intranasal Q12H PRN 04/30/25 History (12 Hour Nasal Relief [place]) venlafaxine 75 mg capsule,extended 225 mg PO DAILY Migraines/Anxiet y 05/05/23 04/30/25 History release 24 hr hydroxyzine HCl 25 mg tablet 25 mg PO TID PRN anxiety #90 tabs 05/02/24 04/30/25 Rx norgestimate 0.25 mg-ethinyl 1 tab PO DAILY #28 tabs 09/28/24 0 04/30/25 Rx estradiol 0.035 mg tablet (Sprintec (28)) propranolol 20 mg tablet 20 mg PO BID Migraines #180 tabs 0 11/20/24 04/30/25 Rx fremanezumab-vfrm 225 mg/1.5 mL 225 mg subcut QMONTH 04/30/2505/16 History subcutaneous auto-injector (Ajovy) nitrofurantoin 100 mg PO Q12H 5 days #10 caps 05/1604/30/25 Rx monohydrate/macrocrys tals 100 mg capsule (Macrobid) Nurse's Note: Cramps, bladder pressure, urgency. Started this morning. [facility] Medical History Preventative health care Cellulitis of right upper arm Dermatitis Health care maintenance Tachycardia Encounter for preventative adult health care examination Anxiety Chronic migraine history of ulcer Headache, migraine Seasonal allergies Surgical History History of tonsillectomy Family History Mother Anxiety Arthritis Hypertension Thyroid disorder Grandmother Arthritis Hypertension High cholesterol Thyroid disorder Breast cancer Maternal Cancer uterine Maternal Grandfather Hypertension Melanoma Dementia Uncle Hypertension Skin cancer Diabetes Father Osteoporosis seizures/epilepsy Social History adopted: No household members: none housing: house number of children: 0 current occupational status: employed current occupation: [email or web address] u/[employer] current occupational exposures/hazards: No pets and animals: Yes (2) pets and animals: cat(s) history of recent travel: No sexually active: No Smoking Status: Never smoker second hand exposure: No alcohol intake: current alcohol intake frequency: holidays/special occasions only Alcohol type: hard liquor substance use type: does not use caffeine: Yes (3) Type: coffee and tea what type of physical activity do you participate in: weight training and other frequency: 3-4 times per week seatbelt use: always do you feel safe at home: Yes HPI HPI Chief Complaint: UTI Details: TAMI GARCIA, is a 25 F who presents to the office today for initial evaluation at the [facility] for dysuria and urinary frequency with suprapubic pressure first appreciated this morning upon awakening. No complaints of fever, chills, sweats, lightheadedness/dizzi ness, nausea/vomiting, chest pain/shortness of breath/dyspnea on exertion, or midback pain. No changes in color/ character of urine or stool. No ecly-pfb-kanuxdi products taken to assist. No other associated symptoms and no alleviating/aggravati ng factors. ROS Const Constitutional: No other (As above) Exam Const General: cooperative, healthy appearing and no acute distress Orientation: alert, awake Chest Chest palpation inspection: normal inspection of the chest Resp Effort Inspection: normal respiratory effort and able to speak in complete sentences Cardio Rate: regular rate Pulses: radial pulses present GI Inspection: normal to inspection Palpation: soft and tender suprapubic (Patient describes upon self-palpation) General: No CVA tenderness Skin General: no (more content not included)... Normal [facility] Chiropractic Reporton 2024 Chiropractic Report [facility] [place] [address] OFFICE VISIT Date of Service: 04/09/25 MR#: [id number] Acct: [id number] Name: TAMI GARCIA Rep #: [id number] : 2000 Provider: NUNO Boateng Age/Sex: 25/F Location: [facility] Status: Signed Intake Vital Signs 01/30/25 09:04 Height 5 ft 5 in Weight: 195 lb BMI 32.4 BP 118/70 Intake Visit Reasons: BACK PAIN Chief Complaint: neck and low back pain Allergies azithromycin (From Zithromax) Allergy (Mild, Verified 04/09/25 16:19) Rash Medications ???Medication ???Instructions ???Recorded ???Confirmed ???Type ascorbic acid 100 mg-zinc sulfate 1 tab PO DAILY 03/26/20 04/09/25 History 200 mg tablet ferrous sulfate 325 mg (65 mg 325 mg PO DAILY 03/26/20 04/09/25 History iron) tablet (Feosol) levocetirizine 5 mg tablet (Xyzal) 5 mg PO DAILY 03/26/20 04/09/25 History magnesium 250 mg tablet 500 mg PO DAILY 03/26/20 04/09/25 History oxymetazoline 0.05 % nasal spray 2 spray intranasal Q12H PRN 04/09/25 History (12 Hour Nasal Relief [place]) venlafaxine 75 mg capsule,extended 225 mg PO DAILY Migraines/Anxiet y 05/05/23 04/09/25 History release 24 hr hydroxyzine HCl 25 mg tablet 25 mg PO TID PRN anxiety #90 tabs 05/02/24 04/09/25 Rx norgestimate 0.25 mg-ethinyl 1 tab PO DAILY #28 tabs 09/28/24 0 04/09/25 Rx estradiol 0.035 mg tablet (Sprintec (28)) propranolol 20 mg tablet 20 mg PO BID Migraines #180 tabs 0 11/20/24 04/09/25 Rx PFSH Medical History Preventative health care Cellulitis of right upper arm Dermatitis Health care maintenance Tachycardia Encounter for preventative adult health care examination Anxiety Chronic migraine history of ulcer Headache, migraine Seasonal allergies Surgical History History of tonsillectomy Family History Mother Anxiety Arthritis Hypertension Thyroid disorder Grandmother Arthritis Hypertension High cholesterol Thyroid disorder Breast cancer Maternal Cancer uterine Maternal Grandfather Hypertension Melanoma Dementia Uncle Hypertension Skin cancer Diabetes Father Osteoporosis seizures/epilepsy Social History adopted: No household members: none housing: house number of children: 0 current occupational status: employed current occupation: [email or web address] current occupational exposures/hazards: No pets and animals: Yes (2) pets and animals: cat(s) history of recent travel: No sexually active: No Smoking Status: Never smoker second hand exposure: No alcohol intake: current alcohol intake frequency: holidays/special occasions only Alcohol type: hard liquor substance use type: does not use caffeine: Yes (3) Type: coffee and tea what type of physical activity do you participate in: weight training and other frequency: 3-4 times per week seatbelt use: always do you feel safe at home: Yes HPI BACK PAIN Chief Complaint: low back pain Visit Number: 4 Details: Tami is a 25 y/o female here to follow up on neck and back pain. Pt. states she has felt pretty good since her last adjustment. She reports neck stiffness that extends into her upper back equal bilaterally. She has had MORENO's as per her usual. She denies numbness or tingling in her bilateral feet and fingers. She states her low back has been feeling much better than prior visit. She denies new injury, numbness, tingling or radiculopathy. She does experience a great deal of neck tension with her job and gets migraines frequently. She states chiropractic adjustments are helpful in relieving her pain and discomfort. Onset: 01/18/25 Location: low back/neck Duration: intermittent Aggravating or associated factors: bending, leaning, work posture Relieving factors: chiro,massage Pain Quality: aching and dull Exam Musc General: Yes normal gait, joint tenderness and decreased range of motion; No normal posture or muscle weakness Cervical Spine: Yes normal cervical lordosis, Yes cervical muscular tenderness bilateral diffuse , Yes cervical spasm right greater than left diffuse trapezius and paracervical muscles and Yes misalignment misalignment: C2, C6 and C7 Thoracic/Lumber: No thoracic and lumbar spine normal to inspection, Yes paraspinal tenderness bilaterally in the upper thoracic, in the mid lumbar and in the lower lumbar, Yes scoliosis (right lumbar L3), Yes thoraco-lumbar spasm bilaterally (trap) in the upper thoracic and in the mid thoracic and on the right greater than left (lumbar paraspinal, QL) and Yes misalignment T2, T3, T4, T5, L2, L3, L4 and L5 (more content not included)... Normal [facility] Chiropractic Reporton 2024 Chiropractic Report [facility] [address] [place] [address] OFFICE VISIT Date of Service: 03/12/25 MR#: [id number] Acct: [id number] Name: TAMI GARCIA Rep #: [id number] : 2000 Provider: NUNO Boateng Age/Sex: 25/F Location: [facility] Status: Signed Intake Vital Signs 01/30/25 09:04 Height 5 ft 5 in Weight: 195 lb BMI 32.4 BP 118/70 Intake Visit Reasons: BACK PAIN Chief Complaint: low back pain Allergies azithromycin (From Zithromax) Allergy (Mild, Verified 03/12/25 15:41) Rash Medications ???Medication ???Instructions ???Recorded ???Confirmed ???Type ascorbic acid 100 mg-zinc sulfate 1 tab PO DAILY 03/26/20 03/12/25 History 200 mg tablet ferrous sulfate 325 mg (65 mg 325 mg PO DAILY 03/26/20 03/12/25 History iron) tablet (Feosol) levocetirizine 5 mg tablet (Xyzal) 5 mg PO DAILY 03/26/20 03/12/25 History magnesium 250 mg tablet 500 mg PO DAILY 03/26/20 03/12/25 History oxymetazoline 0.05 % nasal spray 2 spray intranasal Q12H PRN 03/12/25 History (12 Hour Nasal Relief [place]) venlafaxine 75 mg capsule,extended 225 mg PO DAILY Migraines/Anxiet y 05/05/23 03/12/25 History release 24 hr hydroxyzine HCl 25 mg tablet 25 mg PO TID PRN anxiety #90 tabs 05/02/24 03/12/25 Rx norgestimate 0.25 mg-ethinyl 1 tab PO DAILY #28 tabs 09/28/24 0 03/12/25 Rx estradiol 0.035 mg tablet (Sprintec (28)) propranolol 20 mg tablet 20 mg PO BID Migraines #180 tabs 0 11/20/24 03/12/25 Rx PFSH Medical History Preventative health care Cellulitis of right upper arm Dermatitis Health care maintenance Tachycardia Encounter for preventative adult health care examination Anxiety Chronic migraine history of ulcer Headache, migraine Seasonal allergies Surgical History History of tonsillectomy Family History Mother Anxiety Arthritis Hypertension Thyroid disorder Grandmother Arthritis Hypertension High cholesterol Thyroid disorder Breast cancer Maternal Cancer uterine Maternal Grandfather Hypertension Melanoma Dementia Uncle Hypertension Skin cancer Diabetes Father Osteoporosis seizures/epilepsy Social History adopted: No household members: none housing: house number of children: 0 current occupational status: employed current occupation: [email or web address] current occupational exposures/hazards: No pets and animals: Yes (2) pets and animals: cat(s) history of recent travel: No sexually active: No Smoking Status: Never smoker second hand exposure: No alcohol intake: current alcohol intake frequency: holidays/special occasions only Alcohol type: hard liquor substance use type: does not use caffeine: Yes (3) Type: coffee and tea what type of physical activity do you participate in: weight training and other frequency: 3-4 times per week seatbelt use: always do you feel safe at home: Yes HPI BACK PAIN Chief Complaint: low back pain Visit Number: 3 Details: Tami is a 25 y/o female here for persistent back pain. Pt. states she had a massage after her last adjustment. She states she did some gardening and after bending over she experienced some tingling in her bilateral feet and fingers. She states her low back has been feeling much better than prior visit. She c/o neck stiffness and reports a MORENO yesterday. She denies new injury, numbness, tingling or radiculopathy. She does experience a great deal of neck tension with her job and gets migraines frequently. Onset: 01/18/25 Location: low back/neck Duration: /intermittent Aggravating or associated factors: bending, leaning, work posture Relieving factors: chiro,massage Pain Quality: aching and dull Exam Musc General: Yes normal gait, joint tenderness and decreased range of motion; No normal posture or muscle weakness Cervical Spine: Yes normal cervical lordosis, Yes cervical muscular tenderness bilateral diffuse , Yes cervical spasm right greater than left diffuse trapezius and paracervical muscles and Yes misalignment misalignment: C2, C6 and C7 Thoracic/Lumber: No thoracic and lumbar spine normal to inspection, Yes paraspinal tenderness bilaterally in the upper thoracic, in the mid lumbar and in the lower lumbar, Yes scoliosis (right lumbar L3), Yes thoraco-lumbar spasm bilaterally (trap) in the upper thoracic and in the mid thoracic and on the right greater than left (lumbar paraspinal, QL) and Yes misalignment T2, T3, T4, T5, L2, L3, L4 and L5 Office Procedures Procedures - Chiropractic Procedures Manipulation: Cervical C2 and C6, Lumbar L3 and L5 and (more content not included)... Normal [facility] Chiropractic Reporton 2024 Chiropractic Report [facility] [address] [place] [address] OFFICE VISIT Date of Service: 02/21/25 MR#: [id number] Acct: [id number] Name: TAMI GARCIA Rep #: [id number] : 2000 Provider: NUNO Boateng Age/Sex: 24/F Location: [facility] Status: Signed Intake Vital Signs 01/30/25 09:04 Height 5 ft 5 in Weight: 195 lb BMI 32.4 BP 118/70 Intake Visit Reasons: BACK PAIN Chief Complaint: low back pain Allergies azithromycin (From Zithromax) Allergy (Mild, Verified 01/30/25 09:04) Rash [facility] Medical History Preventative health care Cellulitis of right upper arm Dermatitis Health care maintenance Tachycardia Encounter for preventative adult health care examination Anxiety Chronic migraine history of ulcer Headache, migraine Seasonal allergies Surgical History History of tonsillectomy Family History Mother Anxiety Arthritis Hypertension Thyroid disorder Grandmother Arthritis Hypertension High cholesterol Thyroid disorder Breast cancer Maternal Cancer uterine Maternal Grandfather Hypertension Melanoma Dementia Uncle Hypertension Skin cancer Diabetes Father Osteoporosis seizures/epilepsy Social History adopted: No household members: none housing: house number of children: 0 current occupational status: employed current occupation: [email or web address] current occupational exposures/hazards: No pets and animals: Yes (2) pets and animals: cat(s) history of recent travel: No sexually active: No Smoking Status: Never smoker second hand exposure: No alcohol intake: current alcohol intake frequency: holidays/special occasions only Alcohol type: hard liquor substance use type: does not use caffeine: Yes (3) Type: coffee and tea what type of physical activity do you participate in: weight training and other frequency: 3-4 times per week seatbelt use: always do you feel safe at home: Yes HPI BACK PAIN Chief Complaint: low back pain Visit Number: 2 Details: Tami is a 24 y/o female here for persistent back pain. Pt. reports no relief in her low back pain since her last adjustment. She states it seems to have worsened since she went to [place] and was on a long flight on a very uncomfortable seat which has aggravated her low back. She c/o constant low back pain equal across bilaterally. She has had intermittent low back pain previously that usually resolves but this has been a constant feeling that if she moves wrong her back will 'go out'. She states she is a side sleeper and her back feels stuck in the side position and has difficulty getting up and changing positions. She states it is achy and sore and rates her pain 3/10 but increases and is sharp with certain movements. She denies new injury, numbness, tingling or radiculopathy. She does experience a great deal of neck tension with her job and gets migraines frequently. Onset: 01/18/25 Location: low back/neck Duration: constant/intermittent Aggravating or associated factors: bending, leaning, sleeping,travel Relieving factors: chiro,massage Pain Quality: aching and dull Exam Musc General: Yes normal gait, joint tenderness and decreased range of motion; No normal posture or muscle weakness Cervical Spine: Yes normal cervical lordosis, Yes cervical muscular tenderness bilateral diffuse , Yes cervical spasm right greater than left diffuse trapezius and paracervical muscles and Yes misalignment misalignment: C2, C6 and C7 Thoracic/Lumber: No thoracic and lumbar spine normal to inspection, Yes paraspinal tenderness bilaterally in the upper thoracic, in the mid lumbar and in the lower lumbar, Yes scoliosis (right lumbar L3), Yes thoraco-lumbar spasm bilaterally (trap) in the upper thoracic and in the mid thoracic and on the right greater than left (lumbar paraspinal, QL) and Yes misalignment T2, T3, T4, T5, L2, L3, L4 and L5 Office Procedures Procedures - Chiropractic Procedures Manipulation: Cervical C2 and C6, Lumbar L3 and L5 and Thoracic T3 and T6 Manipulation: 3-4 regions Electronic Stimulation: Yes Electrical Stimulation: Cervical 15 mins (13) mA and Lumbar 15 mins (13) mA Therapy Performed by:: Yakelin Escobar Traction, Mechanical: Yes Patient Response: positive Assessment and Plan Assessment and Plan (1) Segmental and somatic dysfunction of cervical region: Status: Acute (2) Segmental and somatic dysfunction of lumbar region: Status: Acute (3) Segmental and somatic dysfunction of thoracic region: Status: Acute (4) Scoliosis of lumbar spine: Status: Acute Qualifiers: Idiopathic scoliosis (more content not included)... Normal [facility] Chiropractic Reporton 2024 Chiropractic Report [facility] [place] [address] OFFICE VISIT Date of Service: 01/30/25 MR#: [id number] Acct: [id number] Name: TAMI GARCIA Rep #: [id number] : 2000 Provider: NUNO Boateng Age/Sex: 24/F Location: [facility] Status: Signed Intake Vital Signs 09/28/24 08:02 01/15/25 13:28 01/30/25 09:04 Height 5 ft 5 in 5 ft 5 in 5 ft 5 in Weight: 200 lb 195 lb BMI 33.3 32.4 BP 108/74 118/70 Intake Visit Reasons: REEVAL Chief Complaint: low back pain Is patient in pain?: Yes (low back ) Pain scale (1-10): 1 Allergies azithromycin (From Zithromax) Allergy (Mild, Verified 01/30/25 09:04) Rash Medications ???Medication ???Instructions ???Recorded ???Confirmed ???Type ascorbic acid 100 mg-zinc sulfate 1 tab PO DAILY 03/26/20 01/30/25 History 200 mg tablet ferrous sulfate 325 mg (65 mg 325 mg PO DAILY 03/26/20 01/30/25 History iron) tablet (Feosol) levocetirizine 5 mg tablet (Xyzal) 5 mg PO DAILY 03/26/20 01/30/25 History magnesium 250 mg tablet 500 mg PO DAILY 03/26/20 01/30/25 History oxymetazoline 0.05 % nasal spray 2 spray intranasal Q12H PRN 01/30/25 History (12 Hour Nasal Relief [place]) venlafaxine 75 mg capsule,extended 225 mg PO DAILY Migraines/Anxiet y 05/05/23 01/30/25 History release 24 hr hydroxyzine HCl 25 mg tablet 25 mg PO TID PRN anxiety #90 tabs 05/02/24 01/30/25 Rx norgestimate 0.25 mg-ethinyl 1 tab PO DAILY #28 tabs 09/28/24 0 01/30/25 Rx estradiol 0.035 mg tablet (Sprintec (28)) propranolol 20 mg tablet 20 mg PO BID Migraines #180 tabs 0 11/20/24 01/30/25 Rx PFSH Medical History Preventative health care Cellulitis of right upper arm Dermatitis Health care maintenance Tachycardia Encounter for preventative adult health care examination Anxiety Chronic migraine history of ulcer Headache, migraine Seasonal allergies Surgical History History of tonsillectomy Family History Mother Anxiety Arthritis Hypertension Thyroid disorder Grandmother Arthritis Hypertension High cholesterol Thyroid disorder Breast cancer Maternal Cancer uterine Maternal Grandfather Hypertension Melanoma Dementia Uncle Hypertension Skin cancer Diabetes Father Osteoporosis seizures/epilepsy Social History adopted: No household members: none housing: house number of children: 0 current occupational status: employed current occupation: [email or web address] u/s current occupational exposures/hazards: No pets and animals: Yes (2) pets and animals: cat(s) history of recent travel: No sexually active: No Smoking Status: Never smoker second hand exposure: No alcohol intake: current alcohol intake frequency: holidays/special occasions only Alcohol type: hard liquor substance use type: does not use caffeine: Yes (3) Type: coffee and tea what type of physical activity do you participate in: weight training and other frequency: 3-4 times per week seatbelt use: always do you feel safe at home: Yes HPI REEVAL Chief Complaint: low back pain Visit Number: 1 Details: Tami is a 24 y/o female here for a re-evaluation of back pain. Pt. reports she was playing softball over weekend and took a tumble down a hill. She states she has been experiencing low back pain centralized to her spine since then. She has had intermittent low back pain previously that usually resolves but this has been a constant feeling that if she moves wrong her back will 'go out'. She states she is a side sleeper and her back feels stuck in the side position and has difficulty getting up and changing positions. She works as a [employer] and leaning and bending aggravate her discomfort. She rates her pain a mild 1/10 and denies numbness, tingling or radiculopathy. She does experience a great deal of neck tension with her job and gets migraines frequently. She gets massages routinely for this and had a fall back and neck massage yesterday. Pt. advises she is leaving Tuesday for a long trip to [place] and is concerned with having back issues when she leaves. She states previous chiropractic adjustments have been helpful in the past. Onset: 01/18/25 Location: low back/neck Duration: constant/frequent Aggravating or associated factors: bending, leaning, sleeping Relieving factors: chiro Pain Quality: aching and dull Exam Musc General: Yes normal gait, joint tenderness and decreased range of motion; No normal posture or muscle weakness Cervical Spine: Yes normal cervical lordosis, Yes cervical muscular tenderness bilateral diffus (more content not included)... Normal [facility] L/S Spine Min 4 Viewson 01-20 L/S Spine Min 4 Views [facility] [address] [place], [place] [address] L/S Spine Min 4 Views MR#: [id number] Acct: [id number] Name: TAMI GARCIA Rep #: [id number] : 2000 F 24 From: Sedrick Knight MD PCP: Dr. Divina Lock MD Status: REG CLI Study: L/S Spine Min 4 Views Date of Exam: 01/30/25 Exam# [id number] Ordering Dr: Brittaney Walker D.C. PROCEDURE: L/S SPINE MIN 4 VIEWS 01/30/2025 REASON FOR EXAM: BACK PAIN TECHNIQUE: Four views of the lumbar spine. COMPARISON: None. FINDINGS: No evidence of acute fracture or dislocation. Vertebral body heights are maintained. Intervertebral disc spaces are maintained. No visualized pars defects. Dextroscoliotic curvature centered at L3. RAD/L/S Spine Min 4 Views IMPRESSION: Scoliotic curvature. Reading Location: [place] [address] CC: [place] Dr. Birttaney Walker; Dr. 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 THIS SPECIMEN WAS RESCREENED PART OF OUR CARTRIDGE MAKER PROGRAM Specimen Adequacy: Satisfactory for evaluation. Endocervical and/or squamous metaplastic cells (endocervical component) are present. COMMENTS: The Pap smear is a screening test designed to aid in the detection of premalignant and malignant conditions of the uterine cervix. It is not a diagnostic procedure and should not be used as the sole means of detecting cervical cancer. Both false-positive and false-negative reports do occur. This liquid based ThinPrep(R) pap test was screened with the use of an image guided system. Performed by Mika Sweet, [employer] Solution Architect (ASCP) QC reviewed by Yanci Markham [employer] Solution Architect (ASCP) The HPV DNA reflex criteria were not met with this specimen result therefore, no HPV testing was performed TESTING PERFORMED AT [facility]. ORIGINAL REPORT ON FILE IN LAB CONTAINS ADDITIONAL TEST SITE INFORMATION. Performed By: #### L [id number] #### [facility] [address] 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 Office Visit Reporton 09-28-2024 [employer]olding Machine Operator Office Visit Report [facility] [address], [address] [place] [address] OFFICE VISIT Date of Service: 09/28/24 MR#: [id number] Acct: [id number] Name: TAMI GARCIA Rep #: [id number] : 2000 Provider: PAVAN morales Age/Sex: 24/F Location: [facility] Status: Signed Intake Vital Signs 05/02/24 18:08 09/28/24 08:02 Height 5 ft 5 in 5 ft 5 in Weight: 196 lb 200 lb BMI 32.5 33.3 BP 110/74 108/74 Blood Pressure Location Lt brachial Position Sitting Respiration 14 Pulse 98 Pulse Source Monitor Temp 98.6 F Pulse Oximetry (%) 98 Oxygen Delivery Method room air Intake Visit Reasons: Annual (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 Required: No Is patient in pain?: No Allergies azithromycin (From Zithromax) Allergy (Mild, Verified 09/28/24 08:06) Rash Medications ???Medication ???Instructions ???Recorded ???Confirmed ???Type ascorbic acid 100 mg-zinc sulfate 1 tab PO DAILY 03/26/20 09/28/24 History 200 mg tablet ferrous sulfate 325 mg (65 mg 325 mg PO DAILY 03/26/20 09/28/24 History iron) tablet (Feosol) levocetirizine 5 mg tablet (Xyzal) 5 mg PO DAILY 03/26/20 09/28/24 History magnesium 250 mg tablet 500 mg PO DAILY 03/26/20 09/28/24 History oxymetazoline 0.05 % nasal spray 2 spray intranasal Q12H PRN 09/28/24 History (12 Hour Nasal Relief [place]) venlafaxine 75 mg capsule,extended 225 mg PO DAILY Migraines/Anxiet y 05/05/23 09/28/24 History release 24 hr hydroxyzine HCl 25 mg tablet 25 mg PO TID PRN anxiety #90 tabs 05/02/24 09/28/24 Rx propranolol 20 mg tablet 20 mg PO BID Migraines #180 tabs 0 05/02/24 09/28/24 Rx norgestimate 0.25 mg-ethinyl 1 tab PO DAILY #28 tabs 09/28/24 0 09/28/24 Rx estradiol 35 mcg tablet (Sprintec (28)) Post menopausal: No Patient : No : No Control Method: ocp sprintec [facility] Medical History Preventative health care Cellulitis of right upper arm Dermatitis Health care maintenance Tachycardia Encounter for preventative adult health care examination Anxiety Chronic migraine history of ulcer Headache, migraine Seasonal allergies Surgical History History of tonsillectomy Family History Mother Anxiety Arthritis Hypertension Thyroid disorder Grandmother Arthritis Hypertension High cholesterol Thyroid disorder Breast cancer Maternal Cancer uterine Maternal Grandfather Hypertension Melanoma Dementia Uncle Hypertension Skin cancer Diabetes Father Osteoporosis seizures/epilepsy Social History adopted: No household members: none housing: house number of children: 0 current occupational status: employed current occupation: [email or web address] current occupational exposures/hazards: No pets and animals: Yes (2) pets and animals: cat(s) history of recent travel: No sexually active: No Smoking Status: Never smoker second hand exposure: No alcohol intake: current alcohol intake frequency: holidays/special occasions only Alcohol type: hard liquor substance use type: does not use caffeine: Yes (3) Type: coffee and tea what type of physical activity do you participate in: weight training and other frequency: 3-4 times per week seatbelt use: always do you feel safe at home: Yes HPI Encounter for routine gynecological examination Details: TAMI GARCIA is a 24 year old who presents for annual exam. increasing migraines since starting cpap, started ajovy. Last PAP: 2021; normal History of abnormal PAP: no History of abnormal mammogram: n/a Colon cancer screening: age 38 Other preventative health care screenings: Dr. Lock pcp Female Reproductive History Cycle Length: 21-35 Bleeding Duration: 5 Questions: metorrhagia: No, sexually active: Yes, dyspareunia: No and PCB: No Menopausal Symptoms: No hot flashes, No night sweats, No difficulty concentrating and No change in libido ROS Const Constitutional: Reports as per HPI; Denies fatigue, increased appetite, poor appetite, night sweats, weight gain or weight loss Cardio Card: Denies chest pain Resp Resp: Denies cough or dyspnea GI GI: Reports as per HPI; Denies abdominal pain, bloating, constipation, nausea or vomiting : Reports as per HPI and other; Denies difficulty voiding, hematuria, hot flashes, nipple discharge, pelvic pain, urinary frequency, urinary incontinence, urinary hesitancy, urinary urgency, vaginal discharge, vaginal dryness, vaginal odor or vaginal pruritus Skin Skin/Breast: Denies changing lesions, breast mass, breast pain, breast skin changes or nipple discharge P (more content not included)... Normal [facility] No Panel InformationOrdered By: Anila Guido on 09-16-2023 Free Triiodothyronine (T3) pg/dL 2.4 pg/mL 2.18-3.98 [facility] Serum or plasma thyroid stim ulating hormone (TSH) measurement (units/volume)Ordered By: Anila Guido on 09-16-2023 TSH Qn 1.49 uIU/mL 0.358-3.74 [facility] Thin prep Papanicolaou smear with manual screeningOrdered By: Anila Guido on 09-16-2023 Thin prep Papanicolaou smear with manual screening 0.91 ng/dL 0.76-1.46 [facility] Absolute lymphocyte counton 03-03-2022 Lymphocytes Auto (Unsp spec) [#/Vol] 2.08 10*3/uL 0.83-4.51 [facility] Work Phone: [phone] Absolute reticulocyte counto n 03-03-2022 Reticulocytes (Bld) [#/Vol] 0.00 10*3/uL 0-5 [facility] Work Phone: [phone] Basophil percentageon 2021 Basophil percentage 3.6 mg/dL 2.5-4.9 [facility] Work Phone: [phone] Bilirubin [Mass/Vol] 0.20 mg/dL 0.20-1.00 [facility] Work Phone: Comment on above: For patients on eltr ombopag therapy, use of Dimension [place] TBIL is not recommended. Chloride [Moles/Vol] 106 mmol/L 98-107 [facility] Work Phone: Cholesterol [Mass/Vol] 213 mg/dL <200 [facility] Work Phone: [phone] Comment on above: <200 mg/dL Desirable 200-240 mg/dL Borderline >240 mg/dL High Risk Glucose [Mass/Vol] 90 mg/dL 74-106 [facility] Work Phone: Neutrophils (Bld) [#/Vol] 5.2 10*3/uL 2.0-7.7 [facility] Work Phone: Potassium [Moles/Vol] 3.9 mmol/L 3.5-5.1 [facility] Work Phone: [phone] Protein [Mass/Vol] 7.5 g/dL 6.4-8.2 [facility] Work Phone: [phone] Sodium [Moles/Vol] 137 mmol/L 136-145 [facility] Work Phone: Triglyceride [Mass/Vol] 120 mg/dL <199 [facility] Work Phone: Comment on above: The drugs N-Acetylcy steine and Metamizole may falsely depress this assay.Serum Triglycerides Reference Interval Normal <150 mg/dL Borderline high 150 - 199 mg/dL High 200 - 499 mg/dL Very High > or = 500 mg/dL WBC (Bld) [#/Vol] 7.9 10*3/uL 4.4-11.0 [facility] Work Phone: Blood erythrocytes count (nu mber/volume)on 03-03-2022 RBC (Bld) [#/Vol] 4.45 10*6/uL 4.2-5.4 [facility] Work Phone: Blood hemoglobin measurement (mass/volume)on 03-03-2022 Hemoglobin (Bld) [Mass/Vol] 12.9 g/dL 12.0-15.0 [facility] Work Phone: Blood platelet mean volumeon 03-03-2022 Platelet mean volume (Bld) [Entitic vol] 9.3 fL 6.2-12.0 [facility] Work Phone: Determination of erythrocyte mean corpuscular volume (MCV)on 03-03-2022 MCV (RBC) [Entitic vol] 86.7 fL 81-99 [facility] Work Phone: Direct bilirubinon 2 Bilirubin.direct [Mass/Vol] 0.07 mg/dL 0.00-0.30 [facility] Work Phone: Hematocrit Auto (Bld) [Volum e fraction]on 03-03-2022 Hematocrit (Bld) [Volume fraction] 38.6 % 37-47 [facility] Work Phone: Laboratory - Chemistry and C hemistry - challengeon 03-03-2022 ALP [Catalytic activity/Vol] 85 U/L 45-117 [facility] Work Phone: ALT [Catalytic activity/Vol] 25 U/L 13-56 [facility] Work Phone: Cholesterol.total/Kari sterol in HDL [Mass ratio] 2.80 {ratio} [facility] Work Phone: CO2 [Moles/Vol] 26.0 mmol/L 21.0-32.0 [facility] Work Phone: Globulin (S) [Mass/Vol] 3.8 g/dL 2.2-4.2 [facility] Work Phone: Urea nitrogen/Creatinine [Mass ratio] 16.7 mg/mg 10-20 [facility] Work Phone: Laboratory - Hematology and Cell countson 03-03-2022 Erythrocyte distribution width (RBC) [Entitic vol] 37.1 fL 35.1-43.9 [facility] Work Phone: Erythrocyte distribution width (RBC) [Ratio] 11.7 % 11.6-14.6 [facility] Work Phone: MCH (RBC) [Entitic mass] 29.0 pg 27.0-32.0 [facility] Work Phone: Nucleated RBC/100 WBC (Bld) [Ratio] 0 % 0-5 [facility] Work Phone: MCHC Auto (RBC) [Mass/Vol]on 03-03-2022 MCHC (RBC) [Mass/Vol] 33.4 g/dL 32-36 [facility] Work Phone: No Panel Informationon 03-03 Estimated GFR (MDRD) Amer 142 mL/min >60 [facility] Work Phone: Comment on above: GFR Calc Estimated GFR (MDRD) Non-Af Amer 118 mL/min >60 [facility] Work Phone: Comment on above: Non- GFR Calc Platelets bldon 03-03-2022 Platelets (Bld) [#/Vol] 272 10*3/uL 150-450 [facility] Work Phone: Segmented neutrophils/100 WB C Auto (Bld)on 03-03-2022 Segmented neutrophils/100 WBC (Bld) 65.9 % 47-70 [facility] Work Phone: Serum or plasma albumin adonay urement (mass/volume)on 03-03-2022 Albumin [Mass/Vol] 3.7 g/dL 3.2-5.0 [facility] Work Phone: Serum or plasma albumin/glob ulin mass ratioon 03-03-2022 Albumin/Globulin [Mass ratio] 1.0 {ratio} 0.9-2.4 [facility] Work Phone: Serum or plasma calcium adonay urement (mass/volume)on 03-03-2022 Calcium [Mass/Vol] 9.3 mg/dL 8.5-10.1 [facility] Work Phone: Serum or plasma cholesterol in HDL measurement (mass/volume)on 03-03-2022 Cholesterol in HDL [Mass/Vol] 76 mg/dL >40 [facility] Work Phone: Comment on above: The drugs N-Acetylcy steine and Metamizole may falsely depress this assay. Reference Range HDL <40 mg/dL Low HDL Cholesterol HDL >or= 60 mg/dL High HDL Cholesterol Serum or plasma cholesterol in VLDL measurement (mass/volume)on 03-03-2022 Cholesterol in VLDL [Mass/Vol] 24 mg/dL 5-40 [facility] Work Phone: Serum or plasma creatinine m easurement (mass/volume)on 03-03-2022 Creatinine [Mass/Vol] 0.66 mg/dL 0.55-1.02 [facility] Work Phone: Comment on above: The validity of the calculated GFR & GFRAA in patients over 70 years has not been determined. Clinical correlation is essential. Serum or plasma low density lipoprotein (LDL) cholesterol measurement (mass/volume)on 03-03-2022 Cholesterol in LDL [Mass/Vol] 113 mg/dL 0-130 [facility] Work Phone: Serum or plasma urea nitroge n measurement (mass/volume)on 03-03-2022 Urea nitrogen [Mass/Vol] 11 mg/dL 7-18 [facility] Work Phone: Serum or plasma uric acid me asurement (mass/volume)on 03-03-2022 Urate [Mass/Vol] 5.0 mg/dL 2.6-6.0 [facility] Work Phone: Comment on above: The drugs N-Acetylcy steine and Metamizole may falsely depress this assay. Thin prep Papanicolaou smear with manual screeningon 03-03-2022 Thin prep Papanicolaou smear with manual screening 20 U/L 15-37 [facility] Work Phone: Thin prep Papanicolaou smear with manual screening 5 5-15 [facility] Work Phone: Thin prep Papanicolaou smear with manual screening 133 U/L 84-246 [facility] Work Phone: CNPLiliam 11-30-2018 [employer] ([employer]) TAMI GARCIA ([id number]) 2000 F Date Time Provider Department 11/30/18 JESSICA CERVANTES During your visit today, we recorded the following information about you: CHANDRIKA Pagan 11/30/2018 11:55 AM Signed Left message to call office. 11/30/2018 11:55 AM Patient's mother was found to be a monoallelic carrier for MUTYH. Patient could consider testing for MUTYH. Asked for return call to discuss. Jessica Cervantes MS, [facility] Licensed Genetic Counselor CHANDRIKA Pagan 11/30/2018 12:31 PM Signed Tami Garcia returned my call. We reviewed her mother's genetic test results (MUTYH monoallelic mutation c.[id number] ([id number])), 50% risk to the patient for being a carrier for the same mutation, and 0.5% risk of having MUTYH-Associated Polyposis. Patient's mother was negative for the remaining genes on the Common Hereditary Cancers panel. Patient would like to proceed with MUTYH testing. Will have a saliva kit shipped to the patient[facility] [place] [address] Will contact patient when results are available. Jessica Cervantes MS, [facility] Licensed Genetic Counselor Allergies As of Date: 11/30/2018 Noted Allergy Reaction ZITHROMAX (AZITHROMYCIN) 10/07/2009 4 - Hives Date Reviewed: 12/07/2017 Reviewed by: Dayanna (Rn) KEVIN Josue - Fully Assessed Reason for Visit: Follow Up [171] Prescriptions as of 11/30/2018 Sig: MAGNESIUM ORAL Take by mouth. VENLAFAXINE 75 MG TABLET Take 225 mg by mouth daily at* IBUPROFEN 200 MG TABLET Take 400 mg by mouth every 6 * CLARITIN 10 MG TABLET Take one(1) tablet daily as n* * NASONEX 50 MCG/ACTUATION SPRAY 1-2 sprays each nostril once * Problem List As Of Date: 11/30/2018 (None) Encounter Status:Closed by JESSICA CERVANTES on 11/30/18 Normal [facility] CNOVon 11-20-2018 CNOV Office Visit (GMITT) RADHATAMI ([id number]) 2000 F Date Time Provider Department 11/20/18 11:00 AM JESSICA CERVANTES During your visit today, we recorded the following information about you: CHANDRIKA Pagan 11/20/2018 12:40 PM Signed [facility] Consultation Note Genetic Counselor: Jessica Cervantes MS, [facility] Patient: Tami Garcia Patient Name and confirmed at initiation of visit HIGH LEVEL SUMMARY: ? The patient's maternal family history is potentially suggestive of a hereditary breast cancer syndrome. ? Genetic counseling and consideration of genetic testing is recommended for the patient's mother. The patient's mother was also seen for genetic counseling and testing today. She provided informed consent for the Common Hereditary Cancers panel through [facility]. If a deleterious mutation is identified in the patient's mother, Tami will be recommended to consider single site testing. IDENTIFICATION AND CHIEF COMPLAINT: Dr. Michael Rodriguez requested a consultation for genetic counseling and risk assessment for Tami Garcia, a 18 year old female, for discussion of her family history of breast cancer. She presents to clinic today, accompanied by her mother, to discuss the possibility of a genetic predisposition to cancer, and to further clarify her risks, as well as her family members' risks for cancer. HISTORY OF PRESENT ILLNESS: Tami Garcia is a 18 year old female with no personal history of cancer. PAST MEDICAL HISTORY Diagnosis Date - Migraine - NEGATIVE MEDICAL HISTORY PAST SURGICAL HISTORY Procedure Laterality Date - REMOVAL ADENOIDS,PRIMARY,<12 Y/O Age 3 Adenoidectomy, due to recurrent OM - REMOVAL OF TONSILS,<12 Y/O Age 3 Tonsillectomy CANCER SURVEILLANCE HISTORY: Mammograms: No Breast MRI's: No Breast Biopsies: N/A Colonoscopy: No EGD: No GI Polyps: N/A Pelvic Exam: No Pap Smear: No Dermatology: No REPRODUCTIVE HISTORY AND PERSONAL RISK ASSESSMENT FACTORS: Weight: Last 1 Encounter Wt Readings: Date: Wt: 12/07/2017 67.2 kg (148 lb 2.4 oz) (78 %, Z= 0.79)* Height: Last 1 Encounter Ht Readings: Date: Ht: 11/04/2009 145.4 cm (4' 9.25) (33 %, Z= -0.45)* Menarche was at age 11 Premenopausal Uterus Intact: Yes Ovaries Intact: Yes She has not used HRT in the past. SOCIAL HISTORY: Social History Tobacco Use - Smoking status: Never Smoker - Smokeless tobacco: Never Used Substance Use Topics - Alcohol use: Not on file - Drug use: Not on file FAMILY HISTORY: We obtained a detailed, 4-generation family history. Significant diagnoses are listed below: FAMILY HISTORY Problem Relation Age of Onset - Allergies Mother Seasonal allergic rhinitis - Seizures Father - Breast Cancer Maternal Grandmother 40 recurrence 65, d. 66 - Breast Cancer Other 64 maternal great aunt; triple negative The patient's maternal ancestors are of [place] and descent and paternal ancestors are of Cymro descent. There is no Ashkenazi Hoahaoism ancestry. There is no known consanguinity. A copy of the patient's pedigree will be available under the scanned documents tab following today's visit. GENETIC COUNSELING RISK ASSESSMENT, DISCUSSION, AND SUGGESTED FOLLOW UP: We reviewed the natural history and genetic etiology of sporadic, familial and hereditary cancer syndromes. The patient's family history is potentially suggestive of: a hereditary breast cancer syndrome We discussed that identification of a hereditary cancer syndrome may be helpful in tailoring medical management. The best person to begin with genetic testing is a family member with a history of cancer. Ms. Garcia's maternal grandmother who was diagnosed with breast cancer at age 40 would be the most appropriate relative for genetic testing. However, since this relative is , the patient's mother is the next best relative for genetic testing. Should a mutation be found in her mother, the patient and other at-risk relatives could have site specific mutation testing. The patient's mother was also seen for genetic counseling today and consented to genetic testing with the Common Hereditary cancers panel through [facility]. We discussed that if a mutation is identified in Tami's mother, Tami would have a 50% chance of having the same mutation and should consider targeted testing. If the patient's mother's testing is negative, genetic testing would not be necessary for the patient. The patient was seen for a total of 30 minutes, greater than 50% of which was spent [id number] counseling. This plan is being carried out per Dr. Felicia Skaggs's recommendations. This note will also be sent to the referring provider via the electronic medical record. Jessica Cervantes MS, [facility], Licensed Genetic Counselor [facility] CC: Dr. Felicia Watson CC BY US MAIL: Dr. Michael Rodriguez [address] [facility] [id number] Referring Provider: MICHAEL RODRIGUEZ [[id number]] Allergies As of Date: 11/20/2018 Noted Allergy Reaction ZITHROMAX (AZITHROMYCIN) 10/07/2009 4 - Hives Date Reviewed: 12/07/2017 Reviewed by: Dayanna (Rn) KEVIN Josue - Fully Assessed Primary Visit Diagnosis:Family history of malignant neoplasm of breast [Z80.3] Prescriptions as of 11/20/2018 Sig: MAGNESIUM ORAL Take by mouth. VENLAFAXINE 75 MG TABLET Take 225 mg by mouth daily at* IBUPROFEN 200 MG TABLET Take 400 mg by mouth every 6 * CLARITIN 10 MG TABLET Take one(1) tablet daily as n* * NASONEX 50 MCG/ACTUATION SPRAY 1-2 sprays each nostril once * Problem List As Of Date: 11/20/2018 (None) Encounter Status:Closed by JESSICA CERVANTES on 11/20/18 [facility] PROGRESSon 11-20-2018 Protein mass conc HNO ID: [id number] Author: Jessica Cervantes Service: ? Author Type: Genetic Counselor Type: Progress Notes Filed: 11/20/2018 12:40 PM Note Text: [facility] Consultation Note Genetic Counselor: Jessica Cervantes, MS, [facility] Patient: Tami Garcia Patient Name and confirmed at initiation of visit HIGH LEVEL SUMMARY: ? The patient's maternal family history is potentially suggestive of a hereditary breast cancer syndrome. ? Genetic counseling and consideration of genetic testing is recommended for the patient's mother. The patient's mother was also seen for genetic counseling and testing today. She provided informed consent for the Common Hereditary Cancers panel through [facility]. If a deleterious mutation is identified in the patient's mother, Tami will be recommended to consider single site testing. IDENTIFICATION AND CHIEF COMPLAINT: Dr. Michael Rodriguez requested a consultation for genetic counseling and risk assessment for Tami Garcia, a 18 year old female, for discussion of her family history of breast cancer. She presents to clinic today, accompanied by her mother, to discuss the possibility of a genetic predisposition to cancer, and to further clarify her risks, as well as her family members' risks for cancer. HISTORY OF PRESENT ILLNESS: Tami Garcia is a 18 year old female with no personal history of cancer. PAST MEDICAL HISTORY Diagnosis Date - Migraine - NEGATIVE MEDICAL HISTORY PAST SURGICAL HISTORY Procedure Laterality Date - REMOVAL ADENOIDS,PRIMARY,<12 Y/O Age 3 Adenoidectomy, due to recurrent OM - REMOVAL OF TONSILS,<12 Y/O Age 3 Tonsillectomy CANCER SURVEILLANCE HISTORY: Mammograms: No Breast MRI's: No Breast Biopsies: N/A Colonoscopy: No EGD: No GI Polyps: N/A Pelvic Exam: No Pap Smear: No Dermatology: No REPRODUCTIVE HISTORY AND PERSONAL RISK ASSESSMENT FACTORS: Weight: Last 1 Encounter Wt Readings: Date: Wt: 12/07/2017 67.2 kg (148 lb 2.4 oz) (78 %, Z= 0.79)* Height: Last 1 Encounter Ht Readings: Date: Ht: 11/04/2009 145.4 cm (4' 9.25) (33 %, Z= -0.45)* Menarche was at age 11 Premenopausal Uterus Intact: Yes Ovaries Intact: Yes She has not used HRT in the past. SOCIAL HISTORY: Social History Tobacco Use - Smoking status: Never Smoker - Smokeless tobacco: Never Used Substance Use Topics - Alcohol use: Not on file - Drug use: Not on file FAMILY HISTORY: We obtained a detailed, 4-generation family history. Significant diagnoses are listed below: FAMILY HISTORY Problem Relation Age of Onset - Allergies Mother Seasonal allergic rhinitis - Seizures Father - Breast Cancer Maternal Grandmother 40 recurrence 65, d. 66 - Breast Cancer Other 64 maternal great aunt; triple negative The patient's maternal ancestors are of [place] and descent and paternal ancestors are of Cymro descent. There is no Ashkenazi Hoahaoism ancestry. There is no known consanguinity. A copy of the patient's pedigree will be available under the scanned documents tab following today's visit. GENETIC COUNSELING RISK ASSESSMENT, DISCUSSION, AND SUGGESTED FOLLOW UP: We reviewed the natural history and genetic etiology of sporadic, familial and hereditary cancer syndromes. The patient's family history is potentially suggestive of: a hereditary breast cancer syndrome We discussed that identification of a hereditary cancer syndrome may be helpful in tailoring medical management. The best person to begin with genetic testing is a family member with a history of cancer. Ms. Garcia's maternal grandmother who was diagnosed with breast cancer at age 40 would be the most appropriate relative for genetic testing. However, since this relative is , the patient's mother is the next best relative for genetic testing. Should a mutation be found in her mother, the patient and other at-risk relatives could have site specific mutation testing. The patient's mother was also seen for genetic counseling today and consented to genetic testing with the Common Hereditary cancers panel through [facility]. We discussed that if a mutation is identified in Tami's mother, Tami would have a 50% chance of having the same mutation and should consider targeted testing. If the patient's mother's testing is negative, genetic testing would not be necessary for the patient. The patient was seen for a total of 30 minutes, greater than 50% of which was spent [id number] counseling. This plan is being carried out per Dr. Felicia Skaggs's recommendations. This note will also be sent to the referring provider via the electronic medical record. Jessica Cervantes MS, [facility], Licensed Genetic Counselor [facility] CC: Dr. Felicia Watson CC BY US MAIL: Dr. Michael Rodriguez [address] [facility] [id number] [facility] ED NOTEon 12-07-2017 ED NOTE HNO ID: [id number] Author: Natalie (Rn) Tj, RN Service: (none) Author Type: Registered Nurse Type: ED Notes Filed: 12/07/2017 6:43 PM Note Text: Pt alert, oriented, no distress noted. Pt verbalizes understanding of prescription, wound care, s/sx of infection, and follow up care as needed. [facility] ED NOTE HNO ID: [id number] Author: Dayanna (Rn) Liat, RN Service: (none) Author Type: Registered Nurse Type: ED Notes Filed: 12/07/2017 5:01 PM Note Text: Pt presents to the ED with c/o swelling under left eye. Pt states she stuck a sterile needle into what appeared to be a pimple this morning. Pt. Not with swelling and bruising noted to area. Pt. Denies vision changes. Pt is alert, awake, and talkative in triage. [facility] ED PROV NOTEon 12-07-2017 Protein mass conc HNO ID: [id number] Author: Oliver Dukes MD Service: Emergency Medicine Author Type: Physician Type: ED Provider Notes Filed: 12/08/2017 12:41 AM Note Text: ED Provider Note Patient Name: Tami Garcia SERVICE DATE: 12/07/17 History Patient presents with: Eye Complaint: left HPI Tami is a 17 yo female, PH aside from seasonal allergies, anxiety, and migraines, who presents with left eye/cheek swelling. Per patient she had a nodule on her right cheek bone 1 month ago, occasionally tender. Yesterday it seemed to be bigger and tried to pop it this morning without any pus production. Afterwards she took a sewing needle (sterilized in fire) and poked the nodule, some blood came out, no pus came out. Now the area is more swollen, was able to go to school, and feels the swelling seems to be going down. No pain with eye movement. No eyelid swelling. Took 2 ibuprofen tabs at 12 pm today. PAST MEDICAL HISTORY Diagnosis Date - Migraine - NEGATIVE MEDICAL HISTORY PAST SURGICAL HISTORY Procedure Laterality Date - REMOVAL ADENOIDS,PRIMARY,<12 Y/O Age 3 Adenoidectomy, due to recurrent OM - REMOVAL OF TONSILS,<12 Y/O Age 3 Tonsillectomy FAMILY HISTORY Problem Relation Age of Onset - Allergies Mother Seasonal allergic rhinitis Social History Social History Main Topics - Smoking status: Never Smoker - Smokeless tobacco: Never Used - Alcohol use None - Drug use: None - Sexual activity: No ALLERGIES Allergen Reactions - Zithromax [Azithrom* Hives Review of Systems Constitutional:Negati ve for activity change, appetite change, fatigue, or fevers. HENT: Negative for ear pain, rhinorrhea, nasal congestion, or sore throat. Eyes: Negative for vision changes, eye pain, or discharge. Respiratory: Negative for respiratory distress, cough, stridor, or wheezing. Cardiovascular: Negative for chest pain, palpitations, pallor Gastrointestinal: Negative for abdominal pain, nausea, vomiting, blood in stool, constipation, or diarrhea Genitourinary: Negative Musculoskeletal: Negative for muscle pain, joint pain, or muscle weakness Skin: Negative for Rash, wounds, + left cheek nodule Allergic/Immunologic: Negative Neurological: Negative for altered mental status. Hematological: Negative for adenopathy. Does not bruise/bleed easily. Physical Exam BP 127/90 Pulse 118 Temp (Src) 98.3 (Oral) Resp 20 Wt 148 lb 2.4 oz (67.2kg) SpO2 100% LMP 11/09/2017 Physical Exam Constitutional: She is oriented to person, place, and time. She appears well-developed and well-nourished. No distress. HENT: Head: Normocephalic. Nose: Nose normal. Mouth/Throat: Oropharynx is clear and moist. Eyes: EOM are normal. Pupils are equal, round, and reactive to light. No pain with eye movement Neck: Normal range of motion. Neck supple. Cardiovascular: Normal rate, regular rhythm, normal heart sounds and intact distal pulses. Pulmonary/Chest: Effort normal and breath sounds normal. Neurological: She is alert and oriented to person, place, and time. Skin: Skin is warm and dry. Face with mild open and closed comedomes involving T-zone, nasal bridge, and hairline. No other deep nodules. Psychiatric: She has a normal mood and affect. Her behavior is normal. Diagnostic Testing ED Labs Ordered and Reviewed - No data to display Procedures Medical Decision Making / ED Course ED Course Tami is a 17 yo female, PH aside from seasonal allergies, anxiety, and migraines, who presents with1 month history of left cheek nodule and increased swelling after patient attempted to express pus from pimple and subsequently used needle to pop it today. She is well appearing, afebrile, without eye redness, skin erythema, or eye symptoms. Mild swelling noted to left zygomatic arch with ~1cm nodule without overlying erythema or warmth, no fluctuance and no discharge. Currently no signs of infection or eye involvement. Educated patient on acne and nodular acne, stressed importance of not picking at acne or using needles to pop them. Prescribed Mupirocin topical TID for next 5 days and discussed signs of infections and reasons to return to ER. Provided Pediatric Dermatology follow up information. Encounter Diagnosis ICD-10-CM 1. Nodular acne L70.0 mupirocin (BACTROBAN) 2 % ointment Plan -Mupirocin TID to left cheek/nodule -Monitor for signs of infections -Follow up with PCP if no improvement in 2-3 days and Dermatology if acne worsens or bothersome to patient -Reasons to return to ED discussed The Patient was DISCHARGED: Counseled patient regarding suspected diagnosis AND need for follow-up. Discharged home with verbal and written instructions. They were instructed to return as needed for persistent or worsening symptoms or any new concerns. Condition at time of disposition: stable SIGNATURE: Jessica Radford, DO PGY-3 Jessica Radford Resident 12/07/17 [id number] Attending Note I evaluated the patient and personally participated in the evans components. I agree with the resident's findings and plan as documented and have discussed the case and management of the patient's care with the resident. Signature: Oliver Dukes MD Date: 12/08/2017 Time: 12:41 AM Oliver Dukes MD 12/08/17 0041 [facility] Vital Signs Date Time Vital Sign Value Performing Clinician Facility 05-16-2025 16:03-0400 Body height 165.1 cm Myke Abad MD Work Phone: [facility] 05-16-2025 16:03-0400 Body mass index (BMI) [Ratio] 30.79 kg/m2 Myke Abad MD Work Phone: [facility] 05-16-2025 16:03-0400 Body weight 83.92 kg Myke Abad MD Work Phone: [facility] 04-30-2025 16:25-0400 Body height 165.[address] Divina Lock MD Work Phone: [facility] 04-30-2025 16:25-0400 Body mass index (BMI) [Ratio] 31.8 kg/m2 Dr. Divina Lock MD Work Phone: [facility] 04-30-2025 16:25-0400 Body temperature 98.8 [degF] Dr. Divina Lock MD Work Phone: [facility] 04-30-2025 16:25-0400 Body weight 86.[address] Divina Lock MD Work Phone: [facility] 04-30-2025 16:25-0400 Diastolic blood pressure 82 mm[Hg] Dr. Divina Lock MD Work Phone: [facility] 04-30-2025 16:25-0400 Heart rate 100 /min Dr. Divina Lock MD Work Phone: [facility] 04-30-2025 16:25-0400 SaO2% (BldA) [Mass fraction] 99 % Dr. Divina Lock MD Work Phone: [facility] 04-30-2025 16:25-0400 Systolic blood pressure 132 mm[Hg] Dr. Divina Lock MD Work Phone: [facility] 02-14-2025 14:12-0400 Body height 167.6 cm Myke Abad MD Work Phone: [facility] 02-14-2025 14:12-0400 Body mass index (BMI) [Ratio] 30.67 kg/m2 Myke Abad MD Work Phone: [facility] 02-14-2025 14:12-0400 Body weight 86.18 kg Myke Abad MD Work Phone: [facility] 01-30-2025 09:04-0400 Body height 165.[address] Divina Lock MD Work Phone: [facility] 01-30-2025 09:04-0400 Body mass index (BMI) [Ratio] 32.4 kg/m2 Dr. Divina Lock MD Work Phone: [facility] 01-30-2025 09:04-0400 Body weight 88.[address] Divina Lock MD Work Phone: [facility] 01-30-2025 09:04-0400 Diastolic blood pressure 70 mm[Hg] Dr. Divina Lock MD Work Phone: [facility] 01-30-2025 09:04-0400 Systolic blood pressure 118 mm[Hg] Dr. Divina Lock MD Work Phone: [facility] 11-15-2024 16:32-0400 Body height 167.6 cm Myke Abad MD Work Phone: [facility] 11-15-2024 16:32-0400 Body mass index (BMI) [Ratio] 30.67 kg/m2 Myke Abad MD Work Phone: [facility] 11-15-2024 16:32-0400 Body weight 86.18 kg Myke Abad MD Work Phone: [facility] 08-09-2024 16:40-0500 Body height 165.1 cm Myke Abad MD Work Phone: [facility] 08-09-2024 16:40-0500 Body mass index (BMI) [Ratio] 31.62 kg/m2 Myke Pollo HENDERSON Work Phone: [facility] 08-09-2024 16:40-0500 Body weight 86.18 kg Myke Abad MD Work Phone: [facility] 08-09-2024 16:40-0500 Diastolic blood pressure 79 mm[Hg] Myke Abad MD Work Phone: [facility] 08-09-2024 16:40-0500 Heart rate 93 /min Myke Abad MD Work Phone: [facility] 08-09-2024 16:40-0500 Systolic blood pressure 124 mm[Hg] Myke Abad MD Work Phone: [facility] 06-13-2024 12:08-0400 Body height 167.6 cm Myke Abad MD Work Phone: [facility] 06-13-2024 12:08-0400 Body mass index (BMI) [Ratio] 30.67 kg/m2 Myke Abad MD Work Phone: [facility] 06-13-2024 12:08-0400 Body weight 86.18 kg Myke Abad MD Work Phone: [facility] 09-16-2023 08:03-0500 Body height 165.[address] Divina Lock Work Phone: [facility] 09-16-2023 08:02-0500 Body mass index (BMI) [Ratio] 31.5 kg/m2 Dr. Divina Lock Work Phone: [facility] 09-16-2023 08:02-0500 Body weight 85.[address] Divina Lock Work Phone: [facility] 09-16-2023 08:02-0500 Diastolic blood pressure 75 mm[Hg] Dr. Divina Lock Work Phone: [facility] 09-16-2023 08:02-0500 Systolic blood pressure 108 mm[Hg] Dr. Divina Lock Work Phone: [facility] 05-05-2022 16:20-0400 Body height 165.[address] Divina Lock Work Phone: [facility] Work Phone: 05-05-2022 16:20-0400 Body mass index (BMI) [Ratio] 30.1 kg/m2 Dr. Divina Lock Work Phone: [facility] Work Phone: 05-05-2022 16:20-0400 Body temperature 97 [degF] Dr. Divina Lock Work Phone: [facility] Work Phone: 05-05-2022 16:20-0400 Body weight 82.[address] Divina Lock Work Phone: [facility] Work Phone: 05-05-2022 16:20-0400 Diastolic blood pressure 70 mm[Hg] Dr. Divina Lock Work Phone: [facility] Work Phone: 05-05-2022 16:20-0400 Heart rate 97 /min Dr. Divina Lock Work Phone: [facility] Work Phone: 05-05-2022 16:20-0400 Respiratory rate 16 /min Dr. Divina Lock Work Phone: [facility] Work Phone: 05-05-2022 16:20-0400 SaO2% (BldA) [Mass fraction] 99 % Dr. Divina Lock Work Phone: [facility] Work Phone: 05-05-2022 16:20-0400 Systolic blood pressure 100 mm[Hg] Dr. Divina Lock Work Phone: [facility] Work Phone: 03-22-2022 13:58-0400 Body mass index (BMI) [Ratio] 29.9 kg/m2 Dr. Divina Lock Work Phone: [facility] Work Phone: 03-22-2022 13:58-0400 Body temperature 97.4 [degF] Dr. Divina Lcok Work Phone: [facility] Work Phone: 03-22-2022 13:58-0400 Body weight 81.[address] Divina Lock Work Phone: [facility] Work Phone: 03-22-2022 13:58-0400 Diastolic blood pressure 88 mm[Hg] Dr. Divina Lock Work Phone: [facility] Work Phone: 03-22-2022 13:58-0400 Heart rate 115 /min Dr. Divina Lock Work Phone: [facility] Work Phone: 03-22-2022 13:58-0400 Respiratory rate 16 /min Dr. Divina Lock Work Phone: [facility] Work Phone: 03-22-2022 13:58-0400 SaO2% (BldA) [Mass fraction] 98 % Dr. Divina Lock Work Phone: [facility] Work Phone: 03-22-2022 13:58-0400 Systolic blood pressure 132 mm[Hg] Dr. Divina Lokc Work Phone: [facility] Work Phone: 07-18-2019 19:04-0500 BMI (Body Mass Index) 24.21 kg/m2 [facility] [place] 07-18-2019 19:04-0500 Body Temperature 98.1 [degF] [facility] [place] 07-18-2019 19:04-0500 Body weight 68.04 kg [facility] , [place] 07-18-2019 19:04-0500 BP Diastolic 89 mm[Hg] [facility] , [place] 07-18-2019 19:04-0500 BP Systolic 123 mm[Hg] [facility] , [place] 07-18-2019 19:04-0500 Height 167.6 cm [place], [place] 07-18-2019 19:04-0500 Pulse (Heart Rate) 95 /min [facility] 07-18-2019 19:04-0500 Pulse Oximetry 100 % [facility] [place] 07-18-2019 19:04-0500 Respiratory Rate 16 /min [place], [place] Encounters Encounter Date Encounter Type Care Provider Facility Start: 05-16-2025 End: 05-16-2025 Office outpatient visit 15 minutes Myke Abad MD Work Phone: [facility] 111 Comment on above: CHRISTA (obstructive sle ep apnea) (Primary Dx); Claustrophobia ; Migraine without aura, intractable, with status migrainosus ; Poor sleep hygiene; Cervical paraspinal muscle spasm Start: 05-16-2025 End: 05-16-2025 Priya flowsheet Myke Abad MD Work Phone: [facility] Start: 05-16-2025 End: 05-16-2025 Bonnyo flowsheet Myke Abad MD Work Phone: [facility] Start: 05-16-2025 End: 05-16-2025 ambulatory Divina Lock Facility:[facility] Start: 05-14-2025 ambulatory Divian Lock Facili ty:[facility] Start: 05-09-2025 End: 05-09-2025 ambulatory Divina Lock Facility:[facility] Start: 04-30-2025 End: 04-30-2025 Patient encounter procedure Aaron [facility] Work Phone: Start: 04-30-2025 End: 04-30-[address] Divina Lock MD Work Phone: -[facility] Start: 04-30-2025 End: 04-30-2025 ambulatory Aaron CA Facility:[facility] Start: 04-09-2025 End: 04-09-[address] Brittaney Walker DC -[facility] Work Phone: Start: 04-09-2025 End: 04-09-[address] Divina Lock MD Work Phone: [facility] Start: 03-12-2025 End: 03-12-[address] Brittaney Walker DC -[facility] Work Phone: Start: 03-12-2025 End: 03-12-[address] Divina Lock MD Work Phone: [facility] Start: 02-21-2025 End: 02-21-[address] Brittaney Walker DC -[facility] Work Phone: Start: 02-21-2025 End: 02-21-[address] Divina Lock MD Work Phone: [facility] Start: 02-14-2025 End: 02-14-2025 Bamboo flowsheet Myke Abad MD Work Phone: [facility] Start: 02-14-2025 End: 02-14-2025 Rudyboo flowsdaina Abad MD Work Phone: [facility] Start: 02-14-2025 End: 02-14-2025 ambulatory MYKE ABAD Not Available Start: 02-14-2025 End: 02-14-2025 Office outpatient visit 25 minutes Myke Abad MD Work Phone: [facility] 111 Comment on above: Migraine without aur a, intractable, with status migrainosus (Primary Dx); CHRISTA (obstructive sleep apnea); Claustrophobia ; Poor sleep hygiene Start: 01-30-2025 End: 01-30-[address] Brittaney Walker DC -[facility] Work Phone: Start: 01-30-2025 End: 01-30-[address] Divina Lock MD Work Phone: [facility] Work Phone: Start: 01-30-2025 End: 01-30-2025 ambulatory Divina Lock Facility:[facility] Start: 11-15-2024 End: 11-15-2024 ambulatory MYKE ABAD Not Available Start: 11-15-2024 End: 11-15-2024 Office outpatient visit 25 minutes Myke Abad MD Work Phone: [facility] 111 Comment on above: Migraine without aur a, intractable, with status migrainosus (CMS/HCC) (Primary Dx); CHRISTA (obstructive sleep apnea); Claustrophobia (CMS/HCC); Hypersomnia; Anxiety and depression (CMS/HCC); Cervical paraspinal muscle spasm Start: 11-15-2024 End: 11-15-2024 Bamboo flowsdaina Abad MD Work Phone: [facility] Start: 11-15-2024 End: 11-15-2024 Bamboo nirali Abad MD Work Phone: [facility] Start: 09-28-2024 End: 09-28-2024 ambulatory Divina Lock Facility:[facility] Start: 09-28-2024 End: 09-28-2024 ambulatory Divina Lock Facility:[facility] Start: 08-24-2024 End: 08-24-2024 ambulatory [facility] Facility:[facility] Start: 08-09-2024 End: 08-09-2024 ambulatory MYKE ABAD Not Available Start: 08-09-2024 End: 08-09-2024 Office outpatient visit 25 minutes Myke Abad MD Work Phone: [facility] 111 Comment on above: Migraine without aur a, intractable, with status migrainosus (CMS/HCC) (Primary Dx); CHRISTA (obstructive sleep apnea); Claustrophobia (CMS/HCC); Hypersomnia; Anxiety and depression (CMS/HCC) Start: 08-09-2024 End: 08-09-2024 Priya Abad MD Work Phone: [facility] Start: 08-09-2024 End: 08-09-2024 [employer] Myke Abad MD Work Phone: [facility] Start: 06-20-2024 End: 06-20-2024 ambulatory [facility] Facility:[facility] Start: 06-13-2024 End: 06-13-2024 Office outpatient visit 15 minutes Myke Abad MD Work Phone: [facility] Comment on above: CHRISTA (obstructive sle ep apnea) (Primary Dx); Migraine without aura, intractable, with status migrainosus (CMS/HCC); Cervical paraspinal muscle spasm; Hypersomnia Start: 06-13-2024 End: 06-13-2024 ambulatory MYKE BEBlaise Not Available Start: 09-16-2023 End: 09-16-[address] Divina Lock Work Phone: [facility] Work Phone: Start: 09-16-2023 End: 09-16-[address] Divina Lock Work Phone: [facility] Work Phone: Start: 09-16-2023 End: 09-16-[address] Divina Diaz Phone: [facility] Work Phone: Start: 05-05-[address] Divina Diaz Phone: [facility] Start: 05-11-2022 End: 05-11-[address] Divina Lock Work Phone: [facility] Work Phone: Start: 05-11-2022 End: 05-11-[address] Divina Lock Work Phone: [facility] Start: 05-05-2022 End: 05-05-[address] Divina Diaz Phone: [facility] Start: 03-22-[address] Divina Diaz Phone: [facility] Start: 03-22-2022 End: 03-22-2022 Encounter for general adult medical examination without abnormal findings Dr. Divina Diaz Phone: [facility] Start: 03-22-2022 End: 03-22-[address] Divina Lock Work Phone: [facility] Start: 03-03-[address] Tiera Lock Work Phone: [facility] Start: 03-11-[address] Divina Diaz Phone: [facility] Start: 07-18-2019 End: 07-18-2019 Emergency department patient visit MICHAEL Cain [facility] Start: 07-18-2019 End: 07-18-2019 Emergency department patient visit Cipriano Jackson Work Phone: [facility] ED Comment on above: Laceration of left t humb without foreign body without damage to nail, initial encounter (Primary Dx) Start: 11-20-2018 End: 11-21-2018 Patient encounter procedure MICHAEL RODRIGUEZ [facility] Start: 10-30-2018 End: 11-02-2018 Patient encounter procedure MYKE ABAD [facility] Start: 12-07-2017 End: 12-07-2017 Emergency department patient visit OLIVER DUKES [facility] Start: 08-03-2016 End: 08-03-2016 Patient encounter procedure SEAMUS VELÁZQUEZ [facility] Procedures Date Procedure Procedure Detail Performing Clinician Start: 01-30-2025 X-ray of lumbosacral spine Dr. Divina Lock MD Work Phone: Start: 07-18-2019 APPLY DRESSING MYKE BEJ Start: 07-18-2019 WOUND CARE MYKE BANNER Start: 08-03-2016 Iaadiadoo streptococ cus group a SEAMUS VELÁZQUEZ Plan of Treatment Date Care Activity Detail Author Start: 11-21-2025 End: 11-21-2025 Patient encounter procedure 11/21/2025 4:00 PM EDT Office Visit [facility] [address] [place] [address] [phone] Myke Abad MD [address] [place] [id number] [facility] 111 Start: 05-16-2025 End: 05-16-2025 Patient encounter procedure [facility] 111 Comment on above: Arrived Start: 04-22-2025 Influenza vaccination Influenz a Vaccine (#1) [facility] Start: 02-14-2025 End: 02-14-2025 Patient encounter procedure 02/14/2025 1:45 PM EDT Office Visit [facility] [address] [place] [address] Myke Abad MD [address] [id number] [facility] 111 Start: 01-30-2025 X-ray of lumbosacral spine L/S Spine Min 4 Views [facility] Start: 01-30-2025 XR Spine Lumbar and Sacrum GE 4 Views [facility] Start: 11-14-2024 End: 11-14-2024 Patient encounter procedure 11/14/2024 12:00 PM EDT Office Visit [facility] [address] [place] [address] [facility] Start: 04-22-2024 Influenza vaccination Influenz a Vaccine (#1) [facility] Start: 03-22-2022 Patient referral [facility] Work Phone: Start: 04-22-2019 Influenza vaccination Flu vaccine (# 1) [place], [place] Start: 2019 Cervical cancer screen Cervica l cancer screen [place], [place] Start: 2014 Chlamydia screen Chlamydia screen [place], [place] Start: 2013 HIV screen HIV screen [place], [place] Start: 2009 DTaP/Tdap/Td vaccine (1 - Tdap) DTaP/Tdap/Td vaccine (1 - Tdap) [place], [place] Start: 2009 HPV vaccine (1 - Fem linda 2-dose series) HPV vaccine (1 - Female 2-dose series) [place], [place] Start: 1999 Varicella Vaccine (1 of 2 - 2-dose childhood series) Varicella Vaccine (1 of 2 - 2-dose childhood series) [place], [place] Chiropractic manipulation [facility] Patient referral [facility] Work Phone: [facility] Immunizations Immunization Date Immunization Notes Care Provider Fa [facility] 07-05-2024 influenza, seasonal, injectable, preservative free Dr. Divina Lock MD Work Phone: [facility] 07-05-2024 influenza virus vaccine, unspecified formulation Myke Abad MD Work Phone: [facility] 07-07-2023 influenza, injectabl e, quadrivalent, preservative free Dr. Divina Lock Work Phone: [facility] 07-07-2023 influenza virus vaccine, unspecified formulation Myke Abad MD Work Phone: [facility] 07-07-2022 influenza, injectabl e, quadrivalent, preservative free Dr. Divina Lock Work Phone: [facility] 07-13-2021 influenza, injectabl e, quadrivalent, preservative free Dr. Divina Lock Work Phone: [facility] 07-13-2021 influenza, seasonal, injectable Dr. Divina Lock Work Phone: [facility] Work Phone: 07-03-2021 Covid (Moderna) Dr. Mateusz Lock Work Phone: [facility] 07-14-2020 influenza, injectabl e, quadrivalent, preservative free Dr. Divina Lock Work Phone: [facility] 07-14-2020 influenza, seasonal, injectable Dr. Divina Lock Work Phone: [facility] Work Phone: 06-25-2019 influenza, injectabl e, quadrivalent, preservative free Dr. Divina Lock Work Phone: [facility] 06-25-2019 influenza, seasonal, injectable Dr. Divina Lock Work Phone: [facility] Work Phone: Payers Date Payer Category Payer Self-pay [id number] 2022 Private Health Insurance [employer] [id number] 2022 Unknown [id number] 2018 Unknown [id number] [facility] xxxxxxxxxxxx 2018-Present [phone] [address] [address] [place] [address] [id number] 2015 Unknown [id number] 2014 Unknown [id number] 1998 Unknown [id number] .[id number] 1998 Unknown [id number] .185 1998 Unknown [id number] .732 1998 Unknown [id number] .1259 1998 Unknown [id number] [id number] .1259 1998 Unknown [id number] [id number] .1259 1998 Unknown [id number] 2.16840.1.264061.3.579.2 .1259 Unknown [id number] 2.16840.1.332305.3.579.2 .462 Unknown [id number] 2.16.840.1.338734.3.579.2 .462 Unknown [id number] 2.16.840.1.594034.3.579.2 .462 Unknown [id number] 2.16.840.1.862305.3.579.2 .462 Unknown [id number] 2.16.840.1.057639.3.579.2 .462 Unknown [id number] 2.16.840.1.736296.3.579.2 .462 Unknown [id number] 2.16.840.1.237842.3.579.2 .462 Unknown [id number] 2.16.840.1.982117.3.579.2 .462 Unknown [id number] 2.16.840.1.548296.3.579.2 .462 Unknown [id number] 2.16.840.1.104100.3.579.2 .462 Unknown [id number] 2.16.840.1.214750.3.579.2 .462 Unknown [id number] 2.16.840.1.093055.3.579.2 .462 Unknown [id number] 2.16.840.1.622024.3.579.2 .462 Unknown [id number] 2.16.840.1.074147.3.579.2 .462 Social History Date Type Detail Facility Start: 07-18-2019 End: 01-15-2025 Tobacco smoking status NHIS Never smoker [facility] Start: 07-18-2019 Alcohol intake Current drinke r of alcohol (finding) [place], [place] Start: 2000 Sex Assigned At Not on file [place] Start: 05-05-2022 End: 09-16-2023 Tobacco smoking status [facility] Unknown if ever smoked [facility] Start: 2000 Sex Assigned At Female [facility] Gender identity Not on file [facility] are Goals Date Patient Goal Desired Activity /State Clinical Notes 06-13-2024 to 05-16-2025 Myke Abad MD - 05/16/2025 4:00 PM EDTMuday Abad MD - 05/16/2025 4:00 PM EDAmari Abad MD - 05/16/2025 4:00 PM EDTMuday Abad MD - 05/16/2025 4:00 PM EDTMuday Abad MD - 05/16/2025 4:00 PM EDT Note Date & Type Note Facility 05-16-2025 History of Presen t illness Narrative Associated Problem(s): CHRISTA (obstructive sleep apnea) (Continue PAP.) Download in 3 mo, then before appt. (Continue positioning tx, weight loss efforts.) Consider yet another mask change; also consider change to AutoPAP, jennifer given supine/nonsupine differential. Associated Problem(s): Claustrophobia Take hydroxyzine *nightly* (should last longer than alprazolam would). Associated Problem(s): Migraine without aura, intractable, with status migrainosus (Continue current regimen.) Associated Problem(s): Poor sleep hygiene (Time in bed no more than 9 h. Avoid any activity in bed (e.g. reading) apart from sleep.) Associated Problem(s): Cervical paraspinal muscle spasm (Continue home PT.) Images from the original note were not included. Outpatient Progress Note Patient: Tami Garcia Dept: Neurology : 2000 Appt Date: 05/16/2025 Prev Appt: 02/14/2025 Chief Complaint Patient presents with Sleep Apnea Migraine Appointment Note -- 2 mo Assessment and Plan - Assessment & Plan CHRISTA (obstructive sleep apnea) (Continue PAP.) Download in 3 mo, then before appt. (Continue positioning tx, weight loss efforts.) Consider yet another mask change; also consider change to AutoPAP, jennifer given supine/nonsupine differential. Claustrophobia Take hydroxyzine *nightly* (should last longer than alprazolam would). Migraine without aura, intractable, with status migrainosus (Continue current regimen.) Poor sleep hygiene (Time in bed no more than 9 h. Avoid any activity in bed (e.g. reading) apart from sleep.) Cervical paraspinal muscle spasm (Continue home PT.) Follow-Up - Follow up in about 6 months (around 11/13/2025). History of Present Illness, Associated Treatments and Results - Dx ~CHRISTA . SLEEP DISTURB . (DEPR . ANX . PANIC) Tx CPAP @ 9 + nasal pillows + sleep positioning melatonin XR 5 Aes Hx Download - reviewed. Use - good. Mask - fits well, no leak. PAP clearly improves sleep and daytime wakefulness. Still awakens after 4-5 h, still difficult to fall back asleep even with re-us of ramp, takes mask off to sleep. Some may be mask fit, some is anxiety/claustrophobai. Failed Semeiol Snoring quite noticeable. No one has observed for apnoeas. Awakens 1 x/night. Mouth dry AM. Unrested AM and all day. Weight difficult to control. Circad In bed 1999. Out of bed 0650. Noct oxim PSG ([place]) - AHI=14, REM=28 vs 13, supine=29 vs 8; PLMI=0 (BMI=25.0) - AHI=3.8, all nonREM, supine=5.3 vs 2.1; PLMI=0.4 (BMI=23.3) ([facility]) - AHI=4.4, REM=5 vs _, supine=4.6; PLMI=0 (BMI=19.6) - AHI=16, REM=8 vs 17, Right=20 PAPT MSLT MWT Imaging Testing Surgery T&A age 3. Dx MIGRAINES Tx frema 225 + TPM 50 bid + VLF XR 225 (also helps anxiety) (+ propranolol 20 qd (decr) --PCP/tachy) + Mg 500 + prn riza AEs denies Hx Freq (> 4 h) - 1-2 d/mo on CGRP, 10/29. ... Prev (pre-CGRP) freq - up to daily. Imaging Testing Surgery Failed TPM 50 (dizzy), venlafaxine ER 25 (ineff alone) propranolol 40 (ineffective) Onset age 12 Aura none Sx pressure Loc frontal Assoc photophobia phonophobia movement-exacerbated dizziness Trigger barometric menses stress Compl none Clust none FHx mother Dx MYOFASCIITIS Tx home PT + prn tizanidine 4 hs AEs Hx No complaints. Onset Semeiology Imaging Testing Surgery Failed Physical Exam - General appearance, mentation, extraocular movements, facial strength and movement, hearing, upper and lower extremity strength and tone, sensation to gross testing, coordination, and gait are normal or at baseline unless noted below. HEENT - ___, unchanged: Tongue large ... Tonsillar pillars redundant ... Tonsils excised ... Septal deviation R, orig: ___ MS - ___, unchanged: ___, orig: ___ CNN - ___, unchanged: ___, orig: ___ Motor - ___, unchanged: ___, orig: ___ Sens - ___, unchanged: ___, orig: ___ Reflex - ___, unchanged: ___, orig: ___ Coord - ___, unchanged: ___, orig: ___ Gait - ___, unchanged: ___, orig: ___ Vestib - ___, unchanged: ___, orig: ___ MSK - Spasm - SCM mod Tr C mild, unchanged: ___, orig: ___ Other - ___, unchanged: ___, orig: ___ Vital Signs - Visit Vitals Ht 5' 5 Wt 185 lb BMI 30.79 kg/m BSA 1.96 m Review of Systems - . Const: Denies appetite change, fever, chills. Allergy: Denies medication reaction. Ocular: Denies visual acuity change. ENT: Denies hearing change. Endoc: Denies weight loss. Resp: Denies dyspnoea, wheezing. Cardiac: Denies angina, palpitations. GI: Denies nausea, vomiting. Haem: Denies bleeding. : Denies incontinence. MSK: Denies arthralgias, joint oedema. Derm: Denies rash, hair loss. Neuro: Denies ataxia, tremor. Also see HPI for elements of ROS documented therein and for details of positive findings, which shall supersede the foregoing. PMH, PSH, Allergies, FH, SH - No past medical history on file. No past surgical history on file. Allergies Allergen Reactions Zithromax [Azithromycin] No family history on file. Outpatient Encounter Medications as of 05/16/2025 Medication Sig Dispense Refill fremanezumab (Ajovy) 225 MG/1.5ML auto-injector Inject 1 pen (225 mg) under the skin every 30 (thirty) days 1 each 5 hydrOXYzine HCl (Atarax) 25 MG tablet Take 25 mg by mouth at bedtime magnesium 500 MG tablet 1 (one) time each day at the same time. melatonin 3 MG tablet 1 (one) time each day at the same time. propranolol (Inderal) 20 MG tablet every 12 (twelve) hours. rizatriptan (Maxalt) 10 MG tablet 1 tab prn migraine. May repeat once in 2 hrs. Max 2/MORENO 4/wk 9 tablet 3 Sprintec 28 0.25-35 MG-MCG tablet TAKE 1 TABLET BY MOUTH DAILY Oral for 28 tiZANidine (Zanaflex) 4 MG tablet 1 tab QHS 90 tablet 3 topiramate 50 MG tablet 1 tab BID 60 tablet 5 venlafaxine XR (Effexor XR) 75 MG 24 hr capsule 3 caps daily 90 capsule 5 No facility-administered encounter medications on file as of 05/16/2025. Myke Abad M.D. [facility] ? [address] ? [place], [place] [address] ? ? fax Neurology ? Clinical Neurophysiology ? Epilepsy ? Sleep Disorders ? Clinical Informatics documented in this encounter [facility] 04-30-2025 Progress note [facility] 04-30-2025 Progress note Note Date/Time April 30, 2025 4:42pm [facility] [address], [address] [place] [address] OFFICE VISIT Date of Service: 04/30/25 MR#: [id number] Acct: [id number] Name: TAMI GARCIA Rep #: [id number] : 2000 Provider: LANNY Olson Age/Sex: 25/F Location: [facility] Status: Signed Intake Vital Signs 01/30/25 09:04 04/30/25 16:25 Height 5 ft 5 in 5 ft 5 in Weight: 191 lb BMI 31.8 BP 132/82 H Blood Pressure Location Lt brachial Position Sitting Pulse 100 Pulse Source Monitor Temp 98.8 F Temp Source Oral Pulse Oximetry (%) 99 Oxygen Delivery Method room air Intake Visit Reasons: CONCERN FOR UTI Chief Complaint: UTI Accompanied by: Self Allergies azithromycin (From Zithromax) Allergy (Mild, Verified 04/30/25 16:21) Rash Medications ?Medication ?Instructions ?Recorded ?Confirmed ?Type ascorbic acid 100 mg-zinc sulfate 1 tab PO DAILY 03/2604/30/25 History 200 mg tablet ferrous sulfate 325 mg (65 mg 325 mg PO DAILY 03/26/20 04/30/25 History iron) tablet (Feosol) levocetirizine 5 mg tablet (Xyzal) 5 mg PO DAILY 03/2604/30/25 History magnesium 250 mg tablet 500 mg PO DAILY 03/26/2005/16 History oxymetazoline 0.05 % nasal spray 2 spray intranasal Q1 2H PRN 03/26/20 04/30/25 History (12 Hour Nasal Relief [place]) venlafaxine 75 mg capsule,extended 225 mg PO DAILY Zachary wero/Anxiety 05/05/23 04/30/25 History release 24 hr hydroxyzine HCl 25 mg tablet 25 mg PO TID PRN anxiety #90 tabs 05/02/24 04/30/25 Rx norgestimate 0.25 mg-ethinyl 1 tab PO DAILY #28 tabs 0 09/28/24 04/30/25 Rx estradiol 0.035 mg tablet (Sprintec (28)) propranolol 20 mg tablet 20 mg PO BID Migraines #180 tabs 11/20/24 04/30/25 Rx fremanezumab-vfrm 225 mg/1.5 mL 225 mg subcut QMONTH 0 04/30/25 04/30/25 History subcutaneous auto-injector (Ajovy) nitrofurantoin 100 mg PO Q12H 5 days #10 ca ps 04/30/25 04/30/25 Rx monohydrate/macrocrystals 100 mg capsule (Macrobid) Nurse's Note: Cramps, bladder pressure, urgency. Started this morning. [facility] Medical History Preventative health care Cellulitis of right upper arm Dermatitis Health care maintenance Tachycardia Encounter for preventative adult health care examination Anxiety Chronic migraine history of ulcer Headache, migraine Seasonal allergies Surgical History History of tonsillectomy Family History Mother Anxiety Arthritis Hypertension Thyroid disorder Grandmother Arthritis Hypertension High cholesterol Thyroid disorder Breast cancer Maternal Cancer uterine Maternal Grandfather Hypertension Melanoma Dementia Uncle Hypertension Skin cancer Diabetes Father Osteoporosis seizures/epilepsy Social History adopted: No household members: none housing: house number of children: 0 current occupational status: employed current occupation: [email or web address] current occupational exposures/hazards: No pets and animals: Yes (2) pets and animals: cat(s) history of recent travel: No sexually active: No Smoking Status: Never smoker second hand exposure: No alcohol intake: current alcohol intake frequency: holidays/special occasions only Alcohol type: hard liquor substance use type: does not use caffeine: Yes (3) Type: coffee and tea what type of physical activity do you participate in: weight training and other frequency: 3-4 times per week seatbelt use: always do you feel safe at home: Yes HPI HPI Chief Complaint: UTI Details: TAMI GARCIA, is a 25 F who presents to the office today for initial evaluation at the [facility] for dysuria and urinary frequency with suprapubic pressure first appreciated this morning upon awakening. No complaints of fever, chills, sweats, lightheadedness/dizziness, nausea/vomiting, chest pain/shortnessof breath/dyspnea on exertion, or midback pain. No changes in color/ character of urine or stool. No zxaj-alk-[id number] products taken to assist. No other associated symptoms and no alleviating/aggravating factors. ROS Const Constitutional: No other (As above) Exam Const General: cooperative, healthy appearing and no acute distress Orientation: alert, awake Chest Chest palpation & inspection: normal inspection of the chest Resp Effort & Inspection: normal respiratory effort and able to speak in complete sentences Cardio Rate: regular rate Pulses: radial pulses present GI Inspection: normal to inspection Palpation: soft and tender suprapubic (Patient describes upon self-palpation) General: No CVA tenderness Skin General: no rashes or lesions noted Neuro General: patient alert, patient awake Cognition: normal cognition Speech: speech normal Psych Appearance: grossly normal Mental Status: mental status grossly normal Mood: congruent mood Affect: normal affect Speech and Movement: speech and movement normal Attitude: cooperative Diagnoses Urinary tract infection with hematuria N39.0 Assessment and Plan Assessment and Plan (1) Urinary tract infection with hematuria: Status: Acute Plan: See POC results; urine sent to lab for C/S. Macrobid as prescribed today. Supportive measures as instructed today. Follow-up with PCP in 3 to 5 days should symptoms not improve, sooner should symptoms only worsen or any other concerns develop. Patient states acknowledging understanding all the above. Results POC Urine Office , Urine Negative Last Edit by Alba Mead MA on 04/30/25 16:36 POC Urinalysis Dip (Clinic) Office Urine Color YELLOW Last Edit by Alba Mead MA on 04/30/25 16:37 Office Urine Clarity Cloudy Last Edit by Alba Mead MA on 04/30/25 16:37 Office Urine Glucose Negative Last Edit by Alba Mead MA on 04/30/25 16: 37 Office Urine Ketones Negative Last Edit by Alba Mead MA on 04/30/25 16: 37 Off Ur Spec Wesley 1.015 Last Edit by Alba Mead MA on 04/30/25 16:37 Office Urine pH 6.5 Last Edit by Alba Mead MA on 04/30/25 16:37 Office Urine Bilirubin Negative Last Edit by Alba Mead MA on 04/30/25 16:37 Office Urine Urobilinogen 0.2 mg/dL Last Edit by Alba Mead MA on 16:37 Office Urine Blood Hemolyzed Last Edit by Alba Mead MA on 04/30/25 16:3 7 Office Urine Blood Hemolyzed Large Last Edit by Alba Mead MA on 5 16:37 Office Urine Protein 3+ Last Edit by Alba Mead MA on 04/30/25 16:37 Office Urine Nitrate Negative Last Edit by Alba Mead MA on 04/30/25 16: 37 Off Ur Leukocytes Positive Last Edit by Alba Mead MA on 04/30/25 16:37 Coding Level of Care Code Off vis,est,level 3 Assessment and Plan Assessment and Plan Orders: Orders POC Urinalysis Dip (Clinic) Today R30.0 - Dysuria POC Urine Today R30.0 - Dysuria Culture, Urine Today R30.0 - Dysuria Medications: New nitrofurantoin monohyd/m-cryst 100 mg (Macrobid) must administer with a meal/food 100 mg PO Q12H 5 days 10 caps 0RF Plan Details Goals & Barriers: Goals Decrease spasm Decrease pain Improve posture Barriers Scoliosis Work posture 04/30/25 1642 <Electronically signed by Aaron CA> Date _ Aaron CA Cosigner Signature: Date (if applicable) CC: ~ [place] [facility] Work Phone: [phone] 855-346006-26-2025 History of Present illness Narrative* Myke Abad MD - 02/14/2025 1:45 PM EDTAssociated Problem(s): Migraine without aura, intractable, with status migrainosus Retry TPM, std titr. Send in 25s, 50s elderly companion. * Myke Abad MD - 02/14/2025 1:45 PM EDTAssociated Problem(s): CHRISTA (obstructive sleep apnea) (Continue PAP.) Try to use longer. Download in 1 mo (never received for this visit), then before appt. Positioning tx! Prev disc Inspire, pt not a candidate. Discussed other surgical & nonsurgical options, nothing stands out as obviously helpful. Redouble weight loss efforts. (And TPM) * Myke Abad MD - 02/14/2025 1:45 PM EDTAssociated Problem(s): Claustrophobia Discussed reasons for not being able to fall asleep again, does not seem to be anxiety. Pt has hydroxyzine; recommend trying that med. * Myke Abad MD - 02/14/2025 1:45 PM EDTAssociated Problem(s): Poor sleep hygiene Time in bed no more than 9 h. Avoid any activity in bed (e.g. reading) apart from sleep. * Myke Abad MD - 02/14/2025 1:45 PM EDT Images from the original note were not included. Outpatient Progress Note Patient: Tami Garcia Dept: Neurology : 2000 Appt Date: 02/14/2025 Prev Appt: 11/15/2024 Chief Complaint Patient presents with Migraine Sleep Apnea Appointment Note -- 3 mo Assessment and Plan - Assessment & Plan Migraine without aura, intractable, with status migrainosus Retry TPM, std titr. Send in 25s, 50s elderly companion. CHRISTA (obstructive sleep apnea) (Continue PAP.) Try to use longer. Download in 1 mo (never received for this visit), then before appt. Positioning tx! Prev disc Inspire, pt not a candidate. Discussed other surgical & nonsurgical options, nothing stands out as obviously helpful. Redouble weight loss efforts. (And TPM) Claustrophobia Discussed reasons for not being able to fall asleep again, does not seem to be anxiety. Pt has hydroxyzine; recommend trying that med. Poor sleep hygiene Time in bed no more than 9 h. Avoid any activity in bed (e.g. reading) apart from sleep. Follow-Up - Follow up in about 2 months (around 04/16/2025), or BACK CLOS[facility]. History of Present Illness, Associated Treatments and Results - Dx ~CHRISTA . SLEEP DISTURB . (DEPR . ANX . PANIC) Tx CPAP @ 9 + nasal pillows + sleep positioning melatonin XR 5 Aes Hx Download - reviewed. Use - good. Mask - fits well, no leak. PAP clearly improves sleep and daytime wakefulness. Awakens after 4 h, difficult to fall back asleep even with re-us of ramp, takes maskoff to sleep. Failed Semeiol Snoring quite noticeable. No one has observed for apnoeas. Awakens 1 x/night. Mouth dry AM.Unrested AM and all day. Weight difficult to control. Circad In bed 1999. Out of bed 0650. Noct oxim PSG ([place]) - AHI=14, REM=28 vs 13, supine=29 vs 8; PLMI=0 (BMI=25.0) - AHI=3.8, all nonREM, supine=5.3 vs 2.1; PLMI=0.4 (BMI=23.3) ([facility]) - AHI=4.4, REM=5 vs _, supine=4.6; PLMI=0 (BMI=19.6) - AHI=16, REM=8 vs 17, Right=20 PAPT MSLT MWT Imaging Testing Surgery T&A age 3. Dx MIGRAINES Tx frema 225 + VLF XR 225 (also helps anxiety) (+ propranolol 20 bid --PCP/tachy) + Mg 500 + prn riza AEs denies Hx Freq (> 4 h) - 4 d/mo on CGRP, 3/10. ... Prev (pre-CGRP) freq - up to daily. Imaging Testing Surgery Failed TPM 50 (dizzy), venlafaxine ER 25 (ineff alone) propranolol 40 (ineffective) Onset age 12 Aura none Sx pressure Loc frontal Assoc photophobia phonophobia movement-exacerbated dizziness Trigger barometric menses stress Compl none Clust none FHx mother Dx MYOFASCIITIS Tx home PT + prn tizanidine 4 hs AEs Hx Tight Onset Semeiology Imaging Testing Surgery Failed Physical Exam - General appearance, mentation, extraocular movements, facial strength and movement, hearing, upper and lower extremity strength and tone, sensation to gross testing, coordination, and gait are normalor at baseline unless noted below. HEENT - ___, unchanged: Tongue large ... Tonsillar pillars redundant ... Tonsils excised ... Septaldeviation R, orig: ___ MS - ___, unchanged: ___, orig: ___ CNN - ___, unchanged: ___, orig: ___ Motor - ___, unchanged: ___, orig: ___ Sens - ___, unchanged: ___, orig: ___ Reflex - ___, unchanged: ___, orig: ___ Coord - ___, unchanged: ___, orig: ___ Gait - ___, unchanged: ___, orig: ___ Vestib - ___, unchanged: ___, orig: ___ MSK - Spasm - SCM sev Tr C mod, unchanged: ___, orig: ___ Other - ___, unchanged: ___, orig: ___ Vital Signs - Visit Vitals Ht 5' 6 Wt 190 lb BMI 30.67 kg/m BSA 2 m Review of Systems - . Const: Denies appetite change, fever, chills. Allergy: Denies medication reaction. Ocular: Denies visual acuity change. ENT: Denies hearing change. Endoc: Denies weight loss. Resp: Denies dyspnoea, wheezing. Cardiac: Denies angina, palpitations. GI: Denies nausea, vomiting. Haem: Denies bleeding. : Denies incontinence. MSK: Denies arthralgias, joint oedema. Derm: Denies rash, hair loss. Neuro: Denies ataxia, tremor. Also see HPI for elements of ROS documented therein and for details of positive findings, which shall supersede the foregoing. PMH, PSH, Allergies, FH, SH - No past medical history on file. No past surgical history on file. Allergies Allergen Reactions Zithromax [Azithromycin] No family history on file. Outpatient Encounter Medications as of 02/14/2025 Medication Sig Dispense Refill [] fremanezumab (Ajovy) 225 MG/1.5ML auto-injector Inject 1 pen (225 mg) under the skin every 30 (thirty) days 1 each 5 hydrOXYzine HCl (Atarax) 25 MG tablet Take 25 mg by mouth at bedtime magnesium 500 MG tablet 1 (one) time each day at the same time. melatonin 3 MG tablet 1 (one) time each day at the same time. propranolol (Inderal) 20 MG tablet every 12 (twelve) hours. rizatriptan (Maxalt) 10 MG tablet 1 tab prn migraine. May repeat once in 2 hrs. Max 2/MORENO 4/wk 9 tablet 3 Sprintec 28 0.25-35 MG-MCG tablet TAKE 1 TABLET BY MOUTH DAILY Oral for 28 tiZANidine (Zanaflex) 4 MG tablet 1 tab QHS 90 tablet 3 venlafaxine XR (Effexor XR) 75 MG 24 hr capsule 3 caps daily 90 capsule 5 No facility-administered encounter medications on file as of 02/14/2025. Myke Abad M.D. [facility] ? [address] ? [place], [place] [address] ? ? fax Neurology ? Clinical Neurophysiology ? Epilepsy ? Sleep Disorders ? Clinical Informatics documented in this encounterOzarks Medical [id number] Radiology Diagnostic study note [facility] [address] [place] [address] L/S Spine Min 4 Views MR#: [id number] Acct: [id number] Name: TAMI GARCIA Rep #: [id number] : 2000 F 24 From: Ruben Knight MD PCP: Dr. Divina Lock MD Status: R EG CLI Study:L/S Spine Min 4 Views Date of Exam: 01/30/25 Exam# [id number] Ordering Dr: Anamaria Walker D.C. PROCEDURE: L/S SPINE MIN 4 VIEWS 01/30/2025 REASON FOR EXAM: BACK PAIN TECHNIQUE: Four views of the lumbar spine. COMPARISON: None. FINDINGS: No evidence of acute fracture or dislocation. Vertebral body heights are maintained. Intervertebraldisc spaces are maintained. No visualized pars defects. Dextroscoliotic curvature centered at L3. RAD/L/S Spine Min 4 Views IMPRESSION: Scoliotic curvature. Reading Location: [id number] CC: [place] Dr. Brittaney Walker; Dr. Divina Lock MD ~ Membership Solicitor: Signed [facility]06-11-2025 Evaluation note* Diagnosis Onset Date Resolution Status Admit Date Segmental and somatic dysfun ction of cervical region acute January 30 8:50am Segmental and somatic dysfun ction of lumbar region acute January 30, 2025 8:50am Segmental and somatic dysfun ction of thoracic region acute January 30 8:50am [facility] Work Phone: [phone] 316-386306-11-2025 Evaluation note* Diagnosis Onset Date Resolution Status Admit Date Scoliosis of lumbar spine acute January 30, 2025 8:50am Segmental and somatic dysfun ction of cervical region acute January 30 8:50am Segmental and somatic dysfun ction of lumbar region acute January 30, 2025 8:50am Segmental and somatic dysfun ction of thoracic region acute January 30 8:50am Scoliosis of lumbar spine acute February 21, 2025 3:00pm Segmental and somatic dysfun ction of cervical region acute February 21 3:00pm Segmental and somatic dysfun ction of lumbar region acute February 21, 2025 3:00pm Segmental and somatic dysfun ction of thoracic region acute February 21 3:00pm [facility] Work Phone: [phone] Evaluation note* Diagnosis Onset Date Resolution Status Admit Date Scoliosis of lumbar spine acute January 30, 2025 8:50am Segmental and somatic dysfun ction of cervical region acute January 30 8:50am Segmental and somatic dysfun ction of lumbar region acute January 30, 2025 8:50am Segmental and somatic dysfun ction of thoracic region acute January 30 8:50am Scoliosis of lumbar spine acute February 21, 2025 3:00pm Segmental and somatic dysfun ction of cervical region acute February 21 3:00pm Segmental and somatic dysfun ction of lumbar region acute February 21, 2025 3:00pm Segmental and somatic dysfun ction of thoracic region acute February 21 3:00pm Scoliosis of lumbar spine acute March 12, 2025 3:27pm Segmental and somatic dysfun ction of cervical region acute March 12 3:27pm Segmental and somatic dysfun ction of lumbar region acute March 12, 2025 3:27pm Segmental and somatic dysfun ction of thoracic region acute March 12 3:27pm [facility] [facility] Work Phone: [phone] Evaluation note* Diagnosis Onset Date Resolution Status Admit Date Segmental and somatic dysfunction of cervical region acute J [facility] 2024 8:50am Segmental and somatic dysfunction of lumbar region acute Eduardo 2024 8:50am Segmental and somatic dysfunction of thoracic region acute J [facility] 2024 8:50am Scoliosis of lumbar spine chronic January 30, 2025 8:50am Segmental and somatic dysfunction of cervical region acute J [facility] 2024 3:00pm Segmental and somatic dysfunction of lumbar region acute Feb 3:00pm Segmental and somatic dysfunction of thoracic region acute J [facility] 2024 3:00pm Scoliosis of lumbar spine chronic February 21, 2025 3:00pm Segmental and somatic dysfunction of cervical region acute J [facility] 2024 3:27pm Segmental and somatic dysfunction of lumbar region acute Feb 3:27pm Segmental and somatic dysfunction of thoracic region acute J roxane 2024 3:27pm Scoliosis of lumbar spine chronic March 12, 2025 3:27pm Segmental and somatic dysfunction of cervical region acute A ugust 2024 3:59pm Segmental and somatic dysfunction of lumbar region acute Aug ust 2024 3:59pm Segmental and somatic dysfunction of thoracic region acute A ugust 2024 3:59pm Scoliosis of lumbar spine chronic April 09, 2025 3:59pm [facility] [facility] Work Phone: [phone] History of Present illness Narrative* Maddy Maki NP - 11/15/2024 4:15 PM EDTAssociated Problem(s): Migraine without aura, intractable, with status migrainosus (CMS/HCC) Continue current regimen.) Frema 225 QMonth * Maddy Maki NP - 11/15/2024 4:15 PM EDTAssociated Problem(s): CHRISTA (obstructive sleep apnea) Still recommend changing sleep positioning tx from triangular pillow to tennis ball shirt. Discussed Inspire; pt qualifies by BMI but not by AHI. Incr CPAP to 9. Download in 1 mo (never received for this visit), then before appt. Pt to review use of ramp (pt has difficulty falling back asleep with pressure at full). * Maddy Maki NP - 11/15/2024 4:15 PM EDTAssociated Problem(s): Claustrophobia (CMS/HCC) (Consider alprazolam 0.25 hs.) * Maddy Maki NP - 11/15/2024 4:15 PM EDTAssociated Problem(s): Hypersomnia Time in bed no more than 9 h. Avoid any activity in bed (e.g. reading) apart from sleep. (Observe effect of hydroxyzine on anxiety. Consider buspirone if this is not effective enough.) * Maddy Maki NP - 11/15/2024 4:15 PM EDTAssociated Problem(s): Anxiety and depression (CMS/HCC) (In [place].) * Myke Abad MD - 11/15/2024 4:15 PM EDT Images from the original note were not included. Outpatient Progress Note Patient: Tami Garcia Dept: Neurology : 2000 Appt Date: 11/15/2024 Prev Appt: 09/03/2024 Chief Complaint Patient presents with Migraine Sleep Apnea Appointment Note -- 3 mo Assessment and Plan - Assessment & Plan Migraine without aura, intractable, with status migrainosus (CMS/HCC) Continue current regimen.) Frema 225 QMonth CHRISTA (obstructive sleep apnea) Still recommend changing sleep positioning tx from triangular pillow to tennis ball shirt. Discussed Inspire; pt qualifies by BMI but not by AHI. Incr CPAP to 9. Download in 1 mo (never received for this visit), then before appt. Pt to review use of ramp (pt has difficulty falling back asleep with pressure at full). Claustrophobia (CMS/HCC) (Consider alprazolam 0.25 hs.) Hypersomnia Time in bed no more than 9 h. Avoid any activity in bed (e.g. reading) apart from sleep. (Observe effect of hydroxyzine on anxiety. Consider buspirone if this is not effective enough.) Anxiety and depression (CMS/HCC) (In [place].) Follow-Up - Follow up in about 3 months (around 02/15/2025). History of Present Illness, Associated Treatments and Results - Dx ~CHRISTA . SLEEP DISTURB . (DEPR . ANX . PANIC) Tx CPAP @ 8 + nasal pillows + sleep positioning melatonin XR 5 Aes Hx Download - reviewed. Use - good. Mask - fits well, no leak. PAP clearly improves sleep and daytime wakefulness. BMI=30 Currently awakening 2-3 x/night. Weight stabilized with incr'd aerobic exercise (had increased by ~30#). Failed Semeiol Snoring quite noticeable. No one has observed for apnoeas. Awakens 1 x/night. Mouth dry AM.Unrested AM and all day. Could nap by _. Weight difficult to control. Circad In bed 1999. Out of bed 0650. Noct oxim PSG ([place]) - AHI=14, REM=28 vs 13, supine=29 vs 8; PLMI=0 (BMI=25.0) - AHI=3.8, all nonREM, supine=5.3 vs 2.1; PLMI=0.4 (BMI=23.3) ([facility]) - AHI=4.4, REM=5 vs _, supine=4.6; PLMI=0 (BMI=19.6) - AHI=16, REM=8 vs 17, Right=20 PAPT MSLT MWT Imaging Testing Surgery T&A age 3. Dx MIGRAINES Tx Frema 225 + VLF XR 225 (+ propranolol 20 bid --PCP/tachy) + Mg 500 + prn riza AEs denies Hx Freq (> 4 h) - 4 d/mo on CGRP, 10/29. ... Prev (pre-CGRP) freq - up to daily. Imaging Testing Surgery Failed TPM 50 (dizzy), venlafaxine ER 25 (ineff alone) propranolol 40 (ineffective) Onset age 12 Aura none Sx pressure Loc frontal Assoc photophobia phonophobia movement-exacerbated dizziness Trigger barometric menses stress Compl none Clust none FHx mother Dx MYOFASCIITIS Tx home PT + prn tizanidine 4 hs AEs Hx Tight Onset Semeiology Imaging Testing Surgery Failed Physical Exam - General appearance, mentation, extraocular movements, facial strength and movement, hearing, upper and lower extremity strength and tone, sensation to gross testing, coordination, and gait are normalor at baseline unless noted below. HEENT - ___, unchanged: Tongue large ... Tonsillar pillars redundant ... Tonsils excised ... Septaldeviation R, orig: ___ MS - ___, unchanged: ___, orig: ___ CNN - ___, unchanged: ___, orig: ___ Motor - ___, unchanged: ___, orig: ___ Sens - ___, unchanged: ___, orig: ___ Reflex - ___, unchanged: ___, orig: ___ Coord - ___, unchanged: ___, orig: ___ Gait - ___, unchanged: ___, orig: ___ Vestib - ___, unchanged: ___, orig: ___ MSK - Spasm - SCM sev Tr C mod, unchanged: ___, orig: ___ Other - ___, unchanged: ___, orig: ___ Vital Signs - Visit Vitals Ht 5' 6 Wt 190 lb BMI 30.67 kg/m BSA 2 m Review of Systems - . Const: Denies appetite change, fever, chills. Allergy: Denies medication reaction. Ocular: Denies visual acuity change. ENT: Denies hearing change. Endoc: Denies weight loss. Resp: Denies dyspnoea, wheezing. Cardiac: Denies angina, palpitations. GI: Denies nausea, vomiting. Haem: Denies bleeding. : Denies incontinence. MSK: Denies arthralgias, joint oedema. Derm: Denies rash, hair loss. Neuro: Denies ataxia, tremor. Also see HPI for elements of ROS documented therein and for details of positive findings, which shall supersede the foregoing. PMH, PSH, Allergies, FH, SH - No past medical history on file. No past surgical history on file. Allergies Allergen Reactions Zithromax [Azithromycin] No family history on file. Outpatient Encounter Medications as of 11/15/2024 Medication Sig Dispense Refill fremanezumab (Ajovy) 225 MG/1.5ML auto-injector Inject 1 pen (225 mg) under the skin every 30 (thirty) days 1 each 5 hydrOXYzine HCl (Atarax) 25 MG tablet Take 25 mg by mouth at bedtime magnesium 500 MG tablet 1 (one) time each day at the same time. melatonin 3 MG tablet 1 (one) time each day at the same time. propranolol (Inderal) 20 MG tablet every 12 (twelve) hours. rizatriptan (Maxalt) 10 MG tablet 1 tab prn migraine. May repeat once in 2 hrs. Max 2/MORENO 4/wk 9 tablet 3 Sprintec 28 0.25-35 MG-MCG tablet TAKE 1 TABLET BY MOUTH DAILY Oral for 28 tiZANidine (Zanaflex) 4 MG tablet 1 tablet as needed Orally at bedtime for 30 days venlafaxine XR (Effexor XR) 75 MG 24 hr capsule 3 caps daily 90 capsule 5 No facility-administered encounter medications on file as of 11/15/2024. Myke Abad M.D. [facility] ? [address] ? [place], [place] [address] ? ? fax Neurology ? Clinical Neurophysiology ? Epilepsy ? Sleep Disorders ? Clinical Informatics documented in this encounterOzarks Medical [id number] History of Present illness Narrative* Maddy Maki NP - 08/09/2024 4:15 PM ESTAssociated Problem(s): Migraine without aura, intractable, with status migrainosus (CMS/HCC) (Continue current regimen.) Frema 225 QMonth * Maddy Maki NP - 08/09/2024 4:15 PM ESTAssociated Problem(s): CHRISTA (obstructive sleep apnea) Sleep positioning tx (handout). Change mask to Dreamwear Consider Inspire. Explained that I doubt that mandibular advancement would help pt much. * Maddy Maki NP - 08/09/2024 4:15 PM ESTAssociated Problem(s): Anxiety and depression (CMS/HCC) Following with counseling in [place] * Maddy Maki NP - 08/09/2024 4:15 PM ESTAssociated Problem(s): Claustrophobia (CMS/HCC) (Consider alprazolam 0.25 hs.) * Maddy Maki NP - 08/09/2024 4:15 PM ESTAssociated Problem(s): Hypersomnia Decrease time in bed. Avoid any activity in bed (e.g. reading) apart from sleep. (Observe effect of hydroxyzine on anxiety. Consider buspirone if this is not effective enough.) * Myke Abad MD - 08/09/2024 4:15 PM EST Images from the original note were not included. Outpatient Progress Note Patient: Tami Garcia Dept: Neurology : 2000 Appt Date: 08/09/2024 Prev Appt: 07/23/2024 Assessment and Plan - Assessment & Plan Migraine without aura, intractable, with status migrainosus (CMS/HCC) (Continue current regimen.) Frema 225 QMonth CHRISTA (obstructive sleep apnea) Sleep positioning tx (handout). Change mask to Dreamwear Consider Inspire. Explained that I doubt that mandibular advancement would help pt much. Claustrophobia (CMS/HCC) (Consider alprazolam 0.25 hs.) Hypersomnia Decrease time in bed. Avoid any activity in bed (e.g. reading) apart from sleep. (Observe effect of hydroxyzine on anxiety. Consider buspirone if this is not effective enough.) Anxiety and depression (CMS/HCC) Following with counseling in [place] Follow-Up - Follow up in about 3 months (around 11/07/2024). History of Present Illness, Associated Treatments and Results - Dx ~CHRISTA . SLEEP DISTURB . (ANXIETY . PANIC) Tx positioning ... melatonin XR 3 AEs Hx CHRISTA - Sleep as below. Progressive worsening of nocturnal sleep. Very difficult to awaken in the morning, could nap by 1300, Weight significantly increasing, thyroid ruled out as cause. Failed Current mask triggering daily migraines. Semeiology Snoring quite noticeable. No one has observed for apnoeas. Circadian In bed 1999. Out of bed 0650. Noct oxim PSG ([place]) - AHI=14, REM=28 vs 13, supine=29 vs 8; PLMI=0 (BMI=25.0) - AHI=3.8, all nonREM, supine=5.3 vs 2.1; PLMI=0.4 (BMI=23.3) ([facility]) - AHI=4.4, REM=5 vs _, supine=4.6; PLMI=0 (BMI=19.6) - AHI=16, REM=8 vs 17, Right=20. PAPT MSLT MWT Imaging Testing Surgery None recently; eval'd by Dr. Oakes T&A age 3. Dx MIGRAINES Tx VLF XR 225 (+ propranolol 20 bid --PCP/tachy) + Mg 500 + prn riza AEs denies Hx Freq - Daily again w/CPAP. Was ~2 d/mo. ... Orig - daily. Not as severe as they were. Imaging Testing Surgery Failed TPM 50 (dizzy), venlafaxine ER 25 (ineff alone) propranolol 40 (ineffective) Onset age 12 Aura none Sx pressure Loc frontal Assoc photophobia phonophobia movement-exacerbated dizziness Trigger barometric menses stress Compl none Clust none FHx mother Dx MYOFASCIITIS Tx home PT + prn tizanidine 4 hs AEs Hx No complaints. Onset Semeiology Imaging Testing Surgery Failed Dx Depression Tx AEs Hx Onset Semeiology Following with Lois Mei at [place] Imaging Testing Surgery Failed Physical Exam - General appearance, mentation, extraocular movements, facial strength and movement, hearing, upper and lower extremity strength and tone, sensation to gross testing, coordination, and gait are normalor at baseline unless noted below. HEENT - ___, unchanged: Tongue large ... Tonsillar pillars redundant ... Tonsils excised ... Septaldeviation R, orig: ___ MS - ___, unchanged: ___, orig: ___ CNN - ___, unchanged: ___, orig: ___ Motor - ___, unchanged: ___, orig: ___ Sens - ___, unchanged: ___, orig: ___ Reflex - ___, unchanged: ___, orig: ___ Coord - ___, unchanged: ___, orig: ___ Gait - ___, unchanged: ___, orig: ___ Vestib - ___, unchanged: ___, orig: ___ MSK - Spasm - SCM sev Tr C mod, unchanged: ___, orig: ___ Other - ___, unchanged: ___, orig: ___ Vital Signs - Visit Vitals BP 124/79 Pulse 93 Ht 5' 5 Wt 190 lb BMI 31.62 kg/m BSA 1.99 m Review of Systems - . Const: Denies appetite change, fever, chills. Allergy: Denies medication reaction. Ocular: Denies visual acuity change. ENT: Denies hearing change. Endoc: Denies weight loss. Resp: Denies dyspnoea, wheezing. Cardiac: Denies angina, palpitations. GI: Denies nausea, vomiting. Haem: Denies bleeding. : Denies incontinence. MSK: Denies arthralgias, joint oedema. Derm: Denies rash, hair loss. Neuro: Denies ataxia, tremor. Also see HPI for elements of ROS documented therein and for details of positive findings, which shall supersede the foregoing. PMH, PSH, Allergies, FH, SH - No past medical history on file. No past surgical history on file. Allergies Allergen Reactions Zithromax [Azithromycin] No family history on file. Outpatient Encounter Medications as of 08/09/2024 Medication Sig Dispense Refill hydrOXYzine HCl (Atarax) 25 MG tablet Take 25 mg by mouth at bedtime magnesium 500 MG tablet 1 (one) time each day at the same time. melatonin 3 MG tablet 1 (one) time each day at the same time. propranolol (Inderal) 20 MG tablet every 12 (twelve) hours. rizatriptan (Maxalt) 10 MG tablet 1 tab prn migraine. May repeat once in 2 hrs. Max 2/MORENO 4/wk 9 tablet 3 Sprintec 28 0.25-35 MG-MCG tablet TAKE 1 TABLET BY MOUTH DAILY Oral for 28 tiZANidine (Zanaflex) 4 MG tablet 1 tablet as needed Orally at bedtime for 30 days venlafaxine XR (Effexor XR) 75 MG 24 hr capsule 3 caps daily 90 capsule 5 No facility-administered encounter medications on file as of 08/09/2024. Myke Abad M.D. [facility] ? [address] ? [place], [place] [address] ? ? fax Neurology ? Clinical Neurophysiology ? Epilepsy ? Sleep Disorders ? Clinical Informatics documented in this [facility]10-23-2024 History of Present illness Narrative* Myke Abad MD - 06/13/2024 12:00 PM EDTAssociated Problem(s): CHRISTA (obstructive sleep apnea) Redo PSG ([place]). * Myke Abad MD - 06/13/2024 12:00 PM EDTAssociated Problem(s): Migraine without aura, intractable, with status migrainosus (CMS/HCC) (Continue current regimen.) Send danielle, pt has not had for a while. Rev'd safety protocol. * Myke Abad MD - 06/13/2024 12:00 PM EDTAssociated Problem(s): Cervical paraspinal muscle spasm (Continue current regimen, home PT.) Formal PT when/if needed. * Myke Abad MD - 06/13/2024 12:00 PM EDTAssociated Problem(s): Hypersomnia Decrease time in bed. Avoid any activity in bed (e.g. reading) apart from sleep. (Observe effect of hydroxyzine on anxiety. Consider buspirone if this is not effective enough.) * Myke Abad MD - 06/13/2024 12:00 PM EDT Images from the original note were not included. Outpatient Progress Note Patient: Tami Garcia Dept: Neurology : 2000 Appt Date: 06/13/2024 Prev Appt: Visit date not found No chief complaint on file. Assessment and Plan - Assessment & Plan CHRISTA (obstructive sleep apnea) Redo PSG ([place]). Migraine without aura, intractable, with status migrainosus (CMS/HCC) (Continue current regimen.) Send riza, pt has not had for a while. Rev'd safety protocol. Cervical paraspinal muscle spasm (Continue current regimen, home PT.) Formal PT when/if needed. Hypersomnia Decrease time in bed. Avoid any activity in bed (e.g. reading) apart from sleep. (Observe effect of hydroxyzine on anxiety. Consider buspirone if this is not effective enough.) No orders of the defined types were placed in this encounter. Follow-Up - Follow up in about 2 months (around 08/13/2024). History of Present Illness, Associated Treatments and Results - Dx ~CHRISTA . SLEEP DISTURB . (ANXIETY . PANIC) Tx positioning ... melatonin XR 3 AEs Hx CHRISTA - Sleep as below. Progressive worsening of nocturnal sleep. Very difficult to awaken in the morning, could nap by 1300, Weight significantly increasing, thyroid ruled out as cause. Failed Semeiology Snoring quite noticeable. No one has observed for apnoeas. Circadian In bed 1999. Out of bed 0650. Noct oxim PSG (BMI=25.0) - AHI=3.8, all nonREM, supine=5.3 vs 2.1; PLMI=0.4 (BMI=23.3) ([facility]) - AHI=4.4, REM=5 vs _, supine=4.6; PLMI=0 (BMI=19.6) - AHI=16, REM=8 vs 17, Right=20. PAPT MSLT MWT Imaging Testing Surgery None recently; eval'd by Dr. Oakes T&A age 3. Dx MIGRAINES Tx VLF XR 225 (+ propranolol 20 bid --PCP/tachy) + Mg 500 + prn riza AEs denies Hx Freq - ~2 d/mo. ... Orig - daily. Imaging Testing Surgery Failed TPM 50 (dizzy), venlafaxine ER 25 (ineff alone) Onset age 12 Aura none Sx pressure Loc frontal Assoc photophobia phonophobia movement-exacerbated dizziness Trigger barometric menses stress Compl none Clust none FHx mother Dx MYOFASCIITIS Tx home PT + prn tizanidine 4 hs AEs Hx No complaints. Onset Semeiology Imaging Testing Surgery Failed Physical Exam - General appearance, mentation, extraocular movements, facial strength and movement, hearing, upper and lower extremity strength and tone, sensation to gross testing, coordination, and gait are normalor at baseline unless noted below. HEENT - ___, unchanged: Tongue large ... Tonsillar pillars redundant ... Tonsils excised ... Septaldeviation R, orig: ___ MS - ___, unchanged: ___, orig: ___ CNN - ___, unchanged: ___, orig: ___ Motor - ___, unchanged: ___, orig: ___ Sens - ___, unchanged: ___, orig: ___ Reflex - ___, unchanged: ___, orig: ___ Coord - ___, unchanged: ___, orig: ___ Gait - ___, unchanged: ___, orig: ___ Vestib - ___, unchanged: ___, orig: ___ MSK - Spasm - SCM sev Tr C mod, unchanged: ___, orig: ___ Other - ___, unchanged: ___, orig: ___ Vital Signs - Visit Vitals Ht 5' 6 Wt 190 lb BMI 30.67 kg/m BSA 2 m Review of Systems - . Const: Denies appetite change, fever, chills. Allergy: Denies medication reaction. Ocular: Denies visual acuity change. ENT: Denies hearing change. Endoc: Denies weight loss. Resp: Denies dyspnoea, wheezing. Cardiac: Denies angina, palpitations. GI: Denies nausea, vomiting. Haem: Denies bleeding. : Denies incontinence. MSK: Denies arthralgias, joint oedema. Derm: Denies rash, hair loss. Neuro: Denies ataxia, tremor. Also see HPI for elements of ROS documented therein and for details of positive findings, which shall supersede the foregoing. PMH, PSH, Allergies, FH, SH - No past medical history on file. No past surgical history on file. Allergies Allergen Reactions Zithromax [Azithromycin] No family history on file. Outpatient Encounter Medications as of 06/13/2024 Medication Sig Dispense Refill magnesium 500 MG tablet 1 (one) time each day at the same time. melatonin 3 MG tablet 1 (one) time each day at the same time. propranolol (Inderal) 20 MG tablet every 12 (twelve) hours. Sprintec 28 0.25-35 MG-MCG tablet TAKE 1 TABLET BY MOUTH DAILY Oral for 28 tiZANidine (Zanaflex) 4 MG tablet 1 tablet as needed Orally at bedtime for 30 days venlafaxine XR (Effexor XR) 75 MG 24 hr capsule 3 caps daily 90 capsule 5 No facility-administered encounter medications on file as of 06/13/2024. Myke Abad M.D. [facility] ? [address] ? [place] [address] ? ? fax Neurology ? Clinical Neurophysiology ? Epilepsy ? Sleep Disorders ? Clinical Informatics documented in this encounterN[facility]S HealthcareEvaluation note* Diagnosis Onset Date Resolution Status Health care maintenance acut e Tachycardia acute Anxiety chronic Chronic migraine chronic Tachycardia acute Anxiety chronic Chronic migraine chronic [facility] Work Phone: Evaluation note* Diagnosis Onset Date Resolution Status Encounter for routine gynecological examination noneactive [facility] Work Phone: Evaluation note* Diagnosis Migraine without aura, intractable, with status migrainosus (CMS/HCC)- Primary CHRISTA (obstructive sleep apnea) Obstructive sleep apnea (adult) (pediatric) Migraine without aura, not intractable, with status migrainosus (CMS/HCC) CHRISTA (obstructive sleep apnea)- Primary Obstructive sleep apnea (adult) (pediatric) Migraine without aura, intractable, with status migrainosus (CMS/HCC) Cervical paraspinal muscle spasm Spasm of muscle Hypersomnia Hypersomnia, unspecified documented in this encounter [facility] HealthcareEvaluation note* Diagnosis Migraine without aura, intractable, with status migrainosus (CMS/HCC)- Primary CHRISTA (obstructive sleep apnea) Obstructive sleep apnea (adult) (pediatric) Migraine without aura, not intractable, with status migrainosus (CMS/HCC) CHRISTA (obstructive sleep apnea)- Primary Obstructive sleep apnea (adult) (pediatric) Migraine without aura, intractable, with status migrainosus (CMS/HCC) Cervical paraspinal muscle spasm Spasm of muscle Hypersomnia Hypersomnia, unspecified Claustrophobia (CMS/HCC) Other isolated or specific phobias Migraine without aura, intractable, with status migrainosus (CMS/HCC)- Primary CHRISTA (obstructive sleep apnea) Obstructive sleep apnea (adult) (pediatric) Claustrophobia (CMS/HCC) Other isolated or specific phobias Hypersomnia Hypersomnia, unspecified Anxiety and depression (CMS/HCC) documented in this encounter [facility] HealthcareEvaluation note* Diagnosis Migraine without aura, intractable, with status migrainosus (CMS/HCC)- Primary CHRISTA (obstructive sleep apnea) Obstructive sleep apnea (adult) (pediatric) Migraine without aura, not intractable, with status migrainosus (CMS/HCC) CHRISTA (obstructive sleep apnea)- Primary Obstructive sleep apnea (adult) (pediatric) Migraine without aura, intractable, with status migrainosus (CMS/HCC) Cervical paraspinal muscle spasm Spasm of muscle Hypersomnia Hypersomnia, unspecified Claustrophobia (CMS/HCC) Other isolated or specific phobias Migraine without aura, intractable, with status migrainosus (CMS/HCC)- Primary CHRISTA (obstructive sleep apnea) Obstructive sleep apnea (adult) (pediatric) Claustrophobia (CMS/HCC) Other isolated or specific phobias Hypersomnia Hypersomnia, unspecified Anxiety and depression (CMS/HCC) Migraine without aura, intractable, with status migrainosus (CMS/HCC)- Primary CHRISTA (obstructive sleep apnea) Obstructive sleep apnea (adult) (pediatric) Claustrophobia (CMS/HCC) Other isolated or specific phobias Hypersomnia Hypersomnia, unspecified Anxiety and depression (CMS/HCC) Cervical paraspinal muscle spasm Spasm of muscle documented in this encounter [facility]* Diagnosis Onset Date Resolution Status Admit Date Segmental and somatic dysfun ction of cervical region acute January 30 8:50am Segmental and somatic dysfun ction of lumbar region acute January 30, 2025 8:50am Segmental and somatic dysfun ction of thoracic region acute January 30 8:50am [facility] [employer] Work Phone: Evaluation note* Diagnosis Migraine without aura, intractable, with status migrainosus- Primary CHRISTA (obstructive sleep apnea) Obstructive sleep apnea (adult) (pediatric) Migraine without aura, not intractable, with status migrainosus CHRISTA (obstructive sleep apnea)- Primary Obstructive sleep apnea (adult) (pediatric) Migraine without aura, intractable, with status migrainosus Cervical paraspinal muscle spasm Spasm of muscle Hypersomnia Hypersomnia, unspecified Claustrophobia Other isolated or specific phobias Migraine without aura, intractable, with status migrainosus- Primary CHRISTA (obstructive sleep apnea) Obstructive sleep apnea (adult) (pediatric) Claustrophobia Other isolated or specific phobias Hypersomnia Hypersomnia, unspecified Anxiety and depression Migraine without aura, intractable, with status migrainosus- Primary CHRISTA (obstructive sleep apnea) Obstructive sleep apnea (adult) (pediatric) Claustrophobia Other isolated or specific phobias Hypersomnia Hypersomnia, unspecified Anxiety and depression Cervical paraspinal muscle spasm Spasm of muscle Migraine without aura, intractable, with status migrainosus- Primary CHRISTA (obstructive sleep apnea) Obstructive sleep apnea (adult) (pediatric) Claustrophobia Other isolated or specific phobias Poor sleep hygiene Other specific disorder of sleep of nonorganic origin documented in this encounter [facility]* Diagnosis Migraine without aura, intractable, with status migrainosus- Primary CHRISTA (obstructive sleep apnea) Obstructive sleep apnea (adult) (pediatric) Migraine without aura, not intractable, with status migrainosus CHRISTA (obstructive sleep apnea)- Primary Obstructive sleep apnea (adult) (pediatric) Migraine without aura, intractable, with status migrainosus Cervical paraspinal muscle spasm Spasm of muscle Hypersomnia Hypersomnia, unspecified Claustrophobia Other isolated or specific phobias Migraine without aura, intractable, with status migrainosus- Primary CHRISTA (obstructive sleep apnea) Obstructive sleep apnea (adult) (pediatric) Claustrophobia Other isolated or specific phobias Hypersomnia Hypersomnia, unspecified Anxiety and depression Migraine without aura, intractable, with status migrainosus- Primary CHRISTA (obstructive sleep apnea) Obstructive sleep apnea (adult) (pediatric) Claustrophobia Other isolated or specific phobias Hypersomnia Hypersomnia, unspecified Anxiety and depression Cervical paraspinal muscle spasm Spasm of muscle Migraine without aura, intractable, with status migrainosus- Primary CHRISTA (obstructive sleep apnea) Obstructive sleep apnea (adult) (pediatric) Claustrophobia Other isolated or specific phobias Poor sleep hygiene Other specific disorder of sleep of nonorganic origin CHRISTA (obstructive sleep apnea)- Primary Obstructive sleep apnea (adult) (pediatric) Claustrophobia Other isolated or specific phobias Migraine without aura, intractable, with status migrainosus Poor sleep hygiene Other specific disorder of sleep of nonorganic origin Cervical paraspinal muscle spasm Spasm of muscle documented in this encounter [facility] HealthcareReason for referral (narrative)No reason for referral information availableSt. [facility] Work Phone: Summary Purpose Family History Relationship Condition Age at Onset Recorded Date/T perry mother Anxiety Unknown Arthritis Unknown Hypertension Unknown Disorder of thyroid Unknown grandmother Arthritis Unknown High blood cholesterol Unknown grandfather Hypertension Unknown Malignant melanoma Unknown uncle Hypertension Unknown Malignant neoplasm of skin Unknown father Osteoporosis Unknown Unknown Relationship Condition Age at Onset Recorded Date/T perry mother Anxiety Unknown Arthritis Unknown Hypertension Unknown Disorder of thyroid Unknown grandmother Arthritis Unknown High blood cholesterol Unknown grandfather Hypertension Unknown Malignant melanoma Unknown Dementia Unknown uncle Hypertension Unknown Malignant neoplasm of skin Unknown Diabetes mellitus Unknown father Osteoporosis Unknown Unknown Relationship Condition Age at Onset Recorded Date/T perry mother Anxiety Unknown Arthritis Unknown Hypertension Unknown Disorder of thyroid Unknown grandmother Arthritis Unknown High blood cholesterol Unknown Malignant neoplasm of breast Unknown Malignant neoplasm Unknown grandfather Hypertension Unknown Malignant melanoma Unknown Dementia Unknown uncle Hypertension Unknown Malignant neoplasm of skin Unknown Diabetes mellitus Unknown father Osteoporosis Unknown Unknown Advance Directives Documents on File Type Date Recorded Patient Legal Job Titles Expl 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 * Lacerations: Open (Malawian) * Wound Check (Malawian) documented in this encounter History of Present Illness * Michel Johnson RN - 07/18/2019 7:37 PM EST Discharge instuctions reviewed with pt. Pt confirmed understanding with no further questions asked.Pt shows no s/s of distress or discomfort. Dressing applied on left thumb. Teaching on wound care to right thumb. Pt able to return demonstration with no further questions asked. No further complaints voiced. Pt able to ambulate out of facility. documented in this encounter Assessments Diagnosis Laceration of left thumb without foreign body without damage to nail, initial encounter- Primary Chief Complaint and Reason for Visit Chief Complaint HRA 1 Y FU 1 M FU MUSCLE SPASM NECK & SHLD/RX W/ PT Reason for Visit Health care maintena nce Tachycardia Anxiety Chronic migraine Tachycardia Anxiety Chronic migraine Chief Complaint Annual ([employer]) E ORDERS Reason for Visit Encounter for routin e gynecological examination Chief Complaint Admit Date REEVAL January 30, 2025 8:50 am back pain January 30, 2025 9:06 am Reason for Visit Admit Date Segmental and somatic dysfunction of cer vical region January 30, 2025 8:50am Segmental and somatic dysfunction of lum bar region January 30, 2025 8:50am Segmental and somatic dysfunction of tho racic region January 30, 2025 8:50am Chief Complaint Admit Date REEVAL January 30, 2025 8:50 am back pain January 30, 2025 9:06 am BACK PAIN February 21, 2025 3:00p m Reason for Visit Admit Date Scoliosis of lumbar spine January 30 8:50am Segmental and somatic dysfunction of cer vical region January 30, 2025 8:50am Segmental and somatic dysfunction of lum bar region January 30, 2025 8:50am Segmental and somatic dysfunction of tho racic region January 30, 2025 8:50am Scoliosis of lumbar spine February 21, 2025 3:00pm Segmental and somatic dysfunction of cer vical region February 21, 2025 3:00pm Segmental and somatic dysfunction of lum bar region February 21, 2025 3:00pm Segmental and somatic dysfunction of tho racic region February 21, 2025 3:00pm Chief Complaint Admit Date REEVAL January 30, 2025 8:50 am back pain January 30, 2025 9:06 am BACK PAIN February 21, 2025 3:00p m BACK PAIN March 12, 2025 3:27 pm Reason for Visit Admit Date Scoliosis of lumbar spine January 30 8:50am Segmental and somatic dysfunction of cer vical region January 30, 2025 8:50am Segmental and somatic dysfunction of lum bar region January 30, 2025 8:50am Segmental and somatic dysfunction of tho racic region January 30, 2025 8:50am Scoliosis of lumbar spine February 21, 2025 3:00pm Segmental and somatic dysfunction of cer vical region February 21, 2025 3:00pm Segmental and somatic dysfunction of lum bar region February 21, 2025 3:00pm Segmental and somatic dysfunction of tho racic region February 21, 2025 3:00pm Scoliosis of lumbar spine March 12 3:27pm Segmental and somatic dysfunction of cer vical region March 12, 2025 3:27pm Segmental and somatic dysfunction of lum bar region March 12, 2025 3:27pm Segmental and somatic dysfunction of tho racic region March 12, 2025 3:27pm Chief Complaint Admit Date REEVAL January 30, 2025 8:50 am back pain January 30, 2025 9:06 am BACK PAIN February 21, 2025 3:00p m BACK PAIN March 12, 2025 3:27 pm BACK PAIN April 09, 2025 3: 59pm Reason for Visit Admit Date Segmental and somatic dysfunction of cer vical region January 30, 2025 8:50am Segmental and somatic dysfunction of lum bar region January 30, 2025 8:50am Segmental and somatic dysfunction of tho racic region January 30, 2025 8:50am Scoliosis of lumbar spine January 30 8:50am Segmental and somatic dysfunction of cer vical region February 21, 2025 3:00pm Segmental and somatic dysfunction of lum bar region February 21, 2025 3:00pm Segmental and somatic dysfunction of tho racic region February 21, 2025 3:00pm Scoliosis of lumbar spine February 21, 2025 3:00pm Segmental and somatic dysfunction of cer vical region March 12, 2025 3:27pm Segmental and somatic dysfunction of lum bar region March 12, 2025 3:27pm Segmental and somatic dysfunction of tho racic region March 12, 2025 3:27pm Scoliosis of lumbar spine March 12 3:27pm Segmental and somatic dysfunction of cer vical region April 09, 2025 3:59pm Segmental and somatic dysfunction of lum bar region April 09, 2025 3:59pm Segmental and somatic dysfunction of tho racic region April 09, 2025 3:59pm Scoliosis of lumbar spine April 09, 025 3:59pm Chief Complaint Admit Date REEVAL January 30, 2025 8:50 am back pain January 30, 2025 9:06 am BACK PAIN February 21, 2025 3:00p m BACK PAIN March 12, 2025 3:27 pm BACK PAIN April 09, 2025 3: 59pm CONCERN FOR UTI April 30, 2025 4:22pm Additional Source Comments INFORMATION SOURCE (unrecogn ized section and content) DATE CREATED AUTHOR 11/25/2018 [facility] DATE CREATED AUTHOR AUTHOR'S ORGANIZ ATION 12/01/2018 [facility] DATE CREATED AUTHOR AUTHOR'S ORGANIZ ATION 07/19/2019 [facility] DATE CREATED AUTHOR AUTHOR'S ORGANIZ ATION 09/14/2020 [facility] DATE CREATED AUTHOR AUTHOR'S ORGANIZ ATION 02/15/2025 [facility] EPIC DATE CREATED AUTHOR AUTHOR'S ORGANIZ ATION 05/17/2025 [facility] Reason for Visit (unrecogniz ed section and content) Reason Comments Laceration Around 1830 today wi th knife Reason Comments Sleep Apnea Reason Comments Migraine Sleep Apnea Reason Comments Sleep Apnea Migraine Care Teams (unrecognized sec tion and content) Team Status: Active Member Role Status Dates Dr. Divina Lock MD Primary Care Provider Active Team Status: Inactive Member Role Status Dates Dr. Divina Lock MD Primary Care Provider, Refer ring Provider Active Anila Guido CNM Attending Provider Active Team Status: Inactive Member Role Status Dates Dr. 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 Divina Lock MD Primary Care Provider Active Start: January 30, 2025 End: January 30, 2025 Dr. Divina Lock MD Referring Provider Active Start: January 30, 2025 End: January 30, 2025 Dr. Brittaney Walker DC Attending Provider Active S tart: January 30, 2025 End: January 30, 2025 Team Status: Active Member Role Status Dates Dr. Divina Lock MD Primary Care Provider Active Start: January 30, 2025 Dr. Brittaney Walker DC Attending Provider Active S tart: January 30, 2025 Dr. Brittaney Walker DC Referring Provider Active S tart: January 30, 2025 Team Status: Inactive Member Role Status Dates Dr. Divina Lock MD Primary Care Provider Active Start: January 30, 2025 End: January 30, 2025 Dr. Brittaney Walker DC Attending Provider Active S tart: January 30, 2025 End: January 30, 2025 Dr. Brittaney Walker DC Referring Provider Active S tart: January 30, 2025 End: January 30, 2025 Aircraft Structural [employer]itter Relationship Specialty Start Date End Date Divina Lock MD [address] 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 Divina Lock MD Primary Care Provider Active Team Status: Inactive Member Role/Relationship Status Dates Dr. Divina Lock MD Primary Care Provider Active Start: January 30, 2025 End: January 30, 2025 Dr. Divina Lock MD Referring Provider Active Start: January 30, 2025 End: January 30, 2025 Dr. Brittaney Walker DC Attending Provider Active S tart: January 30, 2025 End: January 30, 2025 Team Status: Inactive Member Role/Relationship Status Dates Dr. Divina Lock MD Primary Care Provider Active Start: January 30, 2025 End: January 30, 2025 Dr. Brittaney Walker DC Attending Provider Active S tart: January 30, 2025 End: January 30, 2025 Dr. Brittaney Walker DC Referring Provider Active S tart: January 30, 2025 End: January 30, 2025 Team Status: Inactive Member Role/Relationship Status Dates Dr. Divina Lock MD Primary Care Provider Active Start: February 21, 2025 End: February 21, 2025 Dr. Divina Lock MD Referring Provider Active Start: February 21, 2025 End: February 21, 2025 Dr. Brittaney Walker DC Attending Provider Active S tart: February 21, 2025 End: February 21, 2025 Team Status: Inactive Member Role/Relationship Status Dates Dr. Divina Lock MD Primary Care Provider Active Start: March 12, 2025 End: March 12, 2025 Dr. Divina Lock MD Referring Provider Active Start: March 12, 2025 End: March 12, 2025 Dr. Brittaney Walker DC Attending Provider Active S tart: March 12, 2025 End: March 12, 2025 Team Status: Inactive Member Role/Relationship Status Dates Dr. Divina Lock MD Primary Care Provider Active Start: April 09, 2025 End: April 09, 2025 Dr. Divina Lock MD Referring Provider Active Start: April 09, 2025 End: April 09, 2025 Dr. Brittaney Walker DC Attending Provider Active S tart: April 09, 2025 End: April 09, 2025 Team Status: Inactive Member Role/Relationship Status Dates Dr. Divina Lock MD Primary Care Provider Active Start: April 30, 2025 End: April 30, 2025 Dr. Divina Lock MD Referring Provider Active Start: April 30, 2025 End: April 30, 2025 Aaron CA, PA Attending Provider Active Start: April 30, 2025 End: April 30, 2025 [employer] Relationship Specialty Start Date End Date Divina Lock MD [address] [place] [id number] PCP - General Internal Medicine 06/08/23 [employer] Relationship Specialty Start Date End Date Divina Lock MD [address] [place] [id number] PCP - General Internal Medicine 06/08/23 FOR RECORDS PERTAINING TO PATIENTS WHO ARE OR HAVE BEEN ENROLLED IN A CHEMICAL DEPENDENCY/SUBSTANCEABUSE PROGRAM, SOME INFORMATION MAY BE OMITTED. This clinical summary was aggregated from multiple sources. Caution should be exercised in using it in the provision of clinical care. This summary normalizes information from multiple sources, and as a consequence, information in this document may materially change the coding, format and clinical context of patient data. In addition, data may be omitted in some cases. CLINICAL DECISIONS SHOULD BE BASED ON THE PRIMARY CLINICAL RECORDS. [employer] provides no warranty or guarantee of the accuracy or completeness of information in this document.
[2025-05-17 17:31] LABS: Color, Urine Straw (Yellow); Glucose, Dipstick Normal (Normal); Ketone-Dipstick Negative (Negative); Leukocyte Esterase-Dipstick 500 /ul (Negative); Nitrite-Dipstick Negative (Negative); Occult Blood-Urine 50 /ul (Negative); Protein-Dipstick 15 mg/dl (Negative); Specific Gravity, Urine 1.010 (1.002-1.030); Urine Bilirubin Dipstick Negative (Negative)
[2025-05-17 19:31] LABS: Squamous Epithelial Cells - UA 10-25 SEEN /hpf (5-10)
[2025-05-17 19:33] LABS: Red Blood Cells-Urine 10-25 SEEN /hpf (0-5)
[2025-05-17 19:34] LABS: Transitional Epithelial - Ur 0-5 SEEN /hpf (0-5)
== END | disposition home or self-care (01) ==
LOC: LAB 16:35
PROVIDERS: PCP Internal Medicine; Referring Provider Internal Medicine; Visit Provider Internal Medicine
DX: R30.0 Dysuria (principal)
CPT/HCPCS: 81001; 87086; 87088